=== PATIENT | female | born 1940 | race Caucasian/White ===

== ENCOUNTER 2016-08-01 23:35 | Inpatient (IN) | payer MEDICAID ==
[~2016-08-01] VITALS: Ht 160 cm; Wt 46.3 kg
[2016-08-01 23:31] VITALS: BP 189/103
[~2016-08-01 23:35] MED LIST: ACET-73 GT; ACET325T53 GT; ALBU2.5V13 HHN; BISA10SU8 RC; CHLO473M2 MM; CRAN3875 GT; DOCU50LI; ESOM20CA GT; HEPA500014 SQ; IPRA0.2S9 HHN; MAGN400O6 GT; NA P133E RC; SACC250C6 GT; SENN8.6T6 GT
[2016-08-01] MEDS ORDERED: PANTOPRAZOLE 40 MG VIAL ONE (23:40)
[2016-08-01] MEDS ORDERED: IV NS 0.9% 100 ML IV ONE (23:40)
[2016-08-01] MEDS ORDERED: IV SET PRIMARY PUMP SET 1 EA INFUS.SET MC ONE (23:40)
--- NOTE | 2016-08-01 23:40 | NUR ---
75 YP FEMALE BB RA FROM SNF. PT IS ALERT X 3, C/O COFFEE GROUND DISCHARGE FROM SNF. PT IS TRACHE, VENT DEPENDENT. PT IS GOWNED, PLACED ON BRASSIERE CUP MOLD CUTTER. SKIN WARM AND DRY, RR EVEN AND UNLABORED. AWAITING ORDERS FROM PROVIDER, WILL CONTINUE TO MONITOR
--- NOTE | 2016-08-01 23:45 | NUR ---
18G RIGHT FA IV STARTED. BLOOD SAMPLE OBTAINED AND SENT TO LAB
--- NOTE | 2016-08-01 23:52 | NUR ---
MEDICATED PT ORDERED
[2016-08-02] VITALS (7 sets, daily range): BP systolic 98–145; BP diastolic 41–95
[2016-08-02] MEDS ORDERED: MULT1TAB11 GT
[2016-08-02] MEDS ORDERED: METO5SOL2 GT
[2016-08-02] MEDS ORDERED: PANTOPRAZOLE 80 MG in IV NS 0.9% 100 ML IV ONE ×2
[2016-08-02] MEDS ORDERED: DOCU-25 GT
[2016-08-02] MEDS ORDERED: TRAM50TA2 GT
[2016-08-02] MEDS ORDERED: SIME80TA15 GT
[2016-08-02 00:20] LABS: BASOPHILS % (AUTO) 0.3 % (0.0-2.0); EOSINOPHILS # (AUTO) 0.7 /CMM (0.0-0.7); EOSINOPHILS % (AUTO) 4.4 % (0.0-6.0); HEMATOCRIT 41 % (33-45); HEMOGLOBIN 13.3 g/dL (11.5-14.8); LYMPHOCYTES # (AUTO) 3.6 /CMM (0.8-4.8); LYMPHOCYTES % (AUTO) 23.9 % (20.0-44.0); MEAN CORPUSCULAR HEMOGLOBIN 31 PG (26.0-33.0); MEAN CORPUSCULAR HGB CONC 33 g/dl (31.0-36.0); MEAN CORPUSCULAR VOLUME 94 fL (82-100); MONOCYTES # (AUTO) 1.5 /CMM (0.1-1.30); MONOCYTES % (AUTO) 9.8 % (2.0-12.0); NEUTROPHILS # (AUTO) 9.3 /CMM (1.8-8.9); NEUTROPHILS % (AUTO) 61.6 % (43.0-81.0); PLATELET COUNT (AUTO) 421 /CMM (150-450); RDW COEFFICIENT OF VARIATION 14.4 (11.5-15.0); WHITE BLOOD COUNT (AUTO) 15.1 K/uL (4.3-11.0)
[2016-08-02 00:32] LABS: CALCIUM, SERUM 8.8 mg/dL (8.5-10.1); CARBON DIOXIDE 26 mmol/L (21-32); CHLORIDE 105 mmol/L (98-107); CREATININE 0.3 mg/dL (0.6-1.3); GLUCOSE 122 mg/dL (74-106); POTASSIUM 3.3 mmol/L (3.5-5.1); SODIUM SERUM 139 mmol/L (136-145); UREA NITROGEN, BLOOD 17 mg/dL (7-18)
[2016-08-02 00:38] LABS: INR 0.92 (0.87-1.13); LACTIC ACID 1.4 mmol/L (0.4-2.0); PROTHROMBIN TIME 9.8 SECS (9.5-12.7)
[2016-08-02 00:42] LABS: TROPONIN I < 0.017 ng/mL (0.00-0.056)
[2016-08-02 00:46] LABS: ALANINE AMINOTRANSFERASE 23 U/L (12-78); ALBUMIN 3.6 g/dL (3.4-5.0); ALKALINE PHOSPHATASE 130 U/L (46-116); ASPARTATE AMINOTRANSFERASE 17 U/L (15-37); BILIRUBIN,DIRECT 0.1 mg/dL (0.0-0.2); BILIRUBIN,TOTAL 0.6 mg/dL (0.2-1.0); LIPASE 83 U/L (73-393); TOTAL PROTEIN, SERUM 7.8 g/dL (6.4-8.2)
--- NOTE | 2016-08-02 01:16 | NUR ---
PT TRANSPORTED TO TELE BED WITHOUT INCIDENT
[2016-08-02] MEDS ORDERED: ONDANSETRON HCL/PF 4 MG/2 ML VIAL IVP PRN (02:00)
[2016-08-02] MEDS ORDERED: ACETAMINOPHEN 325 MG TABLET MC PRN (02:00)
[2016-08-02] MEDS ORDERED: TRAMADOL HCL 50 MG TABLET GT PRN (02:00)
[2016-08-02] MEDS ORDERED: ACETAMINOPHEN 325 MG TABLET PO PRN (02:00)
[2016-08-02] MEDS ORDERED: MAGNESIUM HYDROXIDE 30 ML UDC GT PRN (02:00)
[2016-08-02] MEDS ORDERED: MISCELLANEOUS MED 1 EA EA GT PRN (02:00)
[2016-08-02] MEDS ORDERED: BISACODYL SUPP (10 MG) 10 MG/SUPP.RECT SUPP.RECT RC PRN (02:00)
[2016-08-02] MEDS ORDERED: NA PHOS,M-B/NA PHOS,DI-BA 1 EA ENEMA RC PRN (02:00)
[2016-08-02] MEDS ORDERED: POTASSIUM CL. PREMIX PERIPHER. 100 ML ONE (02:32)
[2016-08-02] MEDS ORDERED: IV SET PRIMARY PUMP SET 1 EA INFUS.SET MC ONE (02:49)
[2016-08-02] MEDS ORDERED: SECONDARY IV SET 1 EA INFUS.SET MC ONE ×3 (02:50→12:42)
[2016-08-02] MEDS ORDERED: IV NS 0.9% 250 ML IV ONE ×2 (02:51→12:42)
[2016-08-02] MEDS: POTASSIUM CL. PREMIX PERIPHER. 50 ML IV SCH ×2 (03:00→04:33)
--- NOTE | 2016-08-02 05:01 | NUR ---
PROGRAM DIRECTOR CABLE TELEVISION ADMITTING NOTES RECEIVED PATIENT VIA GURNEY FROM ER VIA ACLS PROTOCOL 0108 FAMILY AT BEDSIDE, PATIENT ON TRACH AND VENT, WITH MO AC RATE 14, TV 500, PEEP 5, FI02 30. PORTEX 7, HEAD TO TOE ASSESSMENT IS DONE, PATIENT STABLE, GT SITE CLEANED WITH NO S/S OF BLEEDING NOTED. PATIENT NPO. KEPT CLEAN DRY AND COMFORTABLE. NO S/S OF DISTRESS. SAFE HAZARD FREE ENVIRONMENT PROVIDED. WILL CONTINUE TO MONITOR PATIENT.
--- NOTE | 2016-08-02 06:26 | NUR ---
RD PROJECT MANAGER CLOSING NOTES PATIENT COMFORTABLY IN BED ASLEEP AND EASILY AWAKEN, ON TELE MONITOR. SR. [facility] WITH SAME SETTING OF VENT. ALERT AND NODS HEAD ABLE TO COMPREHEND SIMPLE INSTRUCTIONS. OFF LOAD AT ALL TIMES. RT CHECK ON HER ON REGULAR BASIS. DENIES PAIN OR DISTRESS,RESPIRATIONS EVEN UNLABORED BREATH SOUNDS. APICAL PULSE REGULAR; GOOD SKIN CARE PROVIDED. PATIENT IN STABLE CONDITION WITH NO SOB NO S/S OF DISTRESS NO NAUSEA AND VOMITING NO HEADACHE NO PAIN, SAFETY ENVIRONMENT PROVIDED. FREE OF CLUTTERS, NEEDS ATTENDED AND ANTICIPATED, NURSING CARE RENDERED, KEPT CLEAN AND DRY AND COMFORTABLE. ALL DUE MEDS WAS GIVEN. REPOSITIONED Q2H FOR COMFORT AND SKIN MGT. CALL LIGHT IN REACH, BED LOWERED AND LOCKED, SR X2 FOR SAFETY AND WILL ENDORSE CONTINUE PLAN OF CARE.
--- NOTE | 2016-08-02 07:05 | NUR ---
TELE/RN AM NOTES RECEIVED PATIENT IN BED, ASLEEP, RESPONSIVE TO VERBAL STIMULI, WITHOUT SOB, NO EVIDENCE OF PAIN. HOB ELEVATED 45 DEGREE, NO DISTRESS, ON MECH VENT SATURATING WELL 98%. TELE MONITOR ATTACHED, HR 74, SINUS RHYTHM. IV LINE RFA INTACT, PATENT. GT INTACT, PATENT, ABLE TO ASPIRATE YELLOW GASTRIC CONTENT, BOWEL SOUNDS ACTIVE ALL 4, NO S/SX NAUSEA, VOMITING.NO EVIDENCE OF BLEEDING. REMAINS NPO, GI CONSULT TO F/U WITH PATIENT. BED IN LOW POSITION, 2 SR UP FOR SAFETY, WITH CALL LIGHT WITHIN EASY REACH. WILL CONTINUE TO MONITOR ACCORDINGLY
[2016-08-02] MEDS: IPRATROPIUM NEB FS 0.5 MG/2.5 ML AMPUL.NEB HHN SCH ×3 (07:51→19:46)
[2016-08-02] MEDS: ALBUTEROL FS 2.5 MG/0.5 ML VIAL.NEB HHN SCH ×3 (07:51→19:46)
[2016-08-02 08:09] LABS: ALBUMIN 2.8 g/dL (3.4-5.0); BILIRUBIN,DIRECT 0.1 mg/dL (0.0-0.2); BILIRUBIN,TOTAL 0.6 mg/dL (0.2-1.0); MAGNESIUM 1.6 mg/dL (1.8-2.4); PHOSPHORUS 3.4 mg/dL (2.5-4.9); TOTAL PROTEIN, SERUM 6.3 g/dL (6.4-8.2)
[2016-08-02] MEDS: CHLORHEXIDINE GLUCONATE 15 ML UDC MM SCH (08:10)
[2016-08-02] MEDS: DOCUSATE SODIUM LIQ 100 MG/10 ML UDC GT SCH ×2 (08:10→23:41)
[2016-08-02] MEDS: METOCLOPRAMIDE HCL 10 MG/10 ML UDC GT SCH ×3 (08:10→16:32)
[2016-08-02] MEDS: SIMETHICONE 80 MG TAB.CHEW GT SCH ×3 (08:13→16:32)
[2016-08-02] MEDS: PANTOPRAZOLE 40 MG VIAL IV SCH ×2 (08:13→16:32)
[2016-08-02] MEDS: MULTIVITAMIN LIQ 5 ML UDC GT SCH (08:13)
[2016-08-02] MEDS: SENNOSIDES 8.6 MG TABLET GT SCH (08:13)
[2016-08-02] MEDS ORDERED: HEPARIN SODIUM, PORCINE 5000 UNITS/1 ML VIAL SQ SCH (09:00)
[2016-08-02] MEDS: Magnesium 1GM/D5W 100ML PREMIX 100 ML IV SCH ×2 (12:40→14:14)
--- NOTE | 2016-08-02 13:45 | NUR ---
TELE/RN NOTES G-TUBE REPOSITIONED, SECURED IN PLACE
--- NOTE | 2016-08-02 17:00 | NUR ---
TELE/RN NOTES GASTRIC CONTENT ASPIRATED, 10 CC, GREEN/YELLOW COLOR, MUCOUS LIKE CONSISTENCY, NO ODOR, LEAKING AROUND GASTRIC TUBE, NO ABDOMINAL DISTENTION, BOWEL SOUNDS PRESENT, NO FACIAL GRIMACING. INFORMED DOCTOR TONIA VIA PHONE. WILL VISIT TO EXAMINE PATIENT
[2016-08-02] MEDS ORDERED: DIATR MEGLU/DIATRIZOATE SODIUM 30 ML BOTTLE (GASTROGRAPHIN) ONE (19:18)
--- NOTE | 2016-08-02 19:45 | NUR ---
RN OPENING NOTES RECEIVED REPORT FROM ALBERTO RN, ALEJANDRA. Pt FOUND AWAKE, RESTING IN BED. DAUGHTER VISITING AT BEDSIDE. NO S/S OF ACUTE DISTRESS OR SOB NOTED. C/O SLIGHT PAIN BUT DID NOT WANT ANY PAIN MEDS AT THIS TIME. Pt IS A/OX1, HUNGARIAN SPEAKING. VENT SETTINGS: FIO2 30, PEEP 5, TV 500, PORTEX #7, RATE 14. IV ACCESS ON LFA #20G. SAFETY MEASURES IN PLACE. BED LOW, LOCKED, HOB ELEVATED, SIDE RAILS UP, & CALL LIGHT WITHIN REACH. WILL CONTINUE TO MONITOR Pt THROUGHOUT THE NIGHT FOR SAFETY.
--- NOTE | 2016-08-02 19:54 | NUR ---
TELE/RN CLOSING NOTES PATIENT IS IN THE BED, HOB ELEVATED, NO DISTRESS, AWAKE, ON MECHANICAL VENT WITH O2 SAT 99%. TELE MONITOR ATTACHED, WITH HR 72, SINUS RHYTHM. IV LINE ON LFA INTACT, PATENT. DENIES PAIN OR DISTRESS, DAUGHTER AT THE BEDSIDE. TURNED/REPOSITIONED PATIENT EVERY 2H, AND NEEDED. G-T INTACT, DRESSING CHANGED. CONTINUES NPO. KEPT CLEAN DRY, COMFORTABLE. NEEDS MET IN TIMELY MANNER, WITH CALL LIGHT WITHIN EASY REACH ALL THE TIME. ENDORSED TO THE SPORTING GOODS SALES ASSOCIATE NURSE FOR ISRAEL.
[2016-08-02] MEDS ORDERED: diphenhydrAMINE HCL 50 MG/ML VIAL ONE (23:22)
[2016-08-02] MEDS ORDERED: diphenhydrAMINE HCL 50 MG/ML VIAL IV PRN (23:30)
[2016-08-03] VITALS: BP 99/56
[2016-08-03] MEDS: IPRATROPIUM NEB FS 0.5 MG/2.5 ML AMPUL.NEB HHN SCH ×3 (01:31→12:37)
[2016-08-03] MEDS: ALBUTEROL FS 2.5 MG/0.5 ML VIAL.NEB HHN SCH ×3 (01:31→12:37)
[2016-08-03 04:00] VITALS: BP 104/70
--- NOTE | 2016-08-03 06:50 | NUR ---
RN CLOSING NOTES NO SIGNIFICANT CHANGES. ALL NEEDS MET AND ATTENDED TO. SAFETY MEASURES IN PLACE. NO S/S OF ACUTE DISTRESS OR SOB DURING THE NIGHT. WILL ENDORSE TO DAYSHIFT RN FOR Pt's ISRAEL AND SAFETY.
--- NOTE | 2016-08-03 07:50 | NUR ---
ART EDUCATION PROFESSOR OPENING NOTE PATIENT IS ALERT AND ORIENTED X1-2. FRENCH SPEAKING, ABLE TO MOUTH WORDS. NO PAIN AT THIS TIME. NO SOB OR DISTRESS NOTED. CALL LIGHT WITHIN REACH. SAFETY MEASURES IMPLEMENTED. ON VENT. IV INTACT AND PATENT NO REDNESS OR SWELLING NOTED. WILL CONTINUE TO MONITOR
[2016-08-03 08:00] VITALS: BP 87/51
[2016-08-03 08:07] LABS: BASOPHILS % (AUTO) 0.6 % (0.0-2.0); EOSINOPHILS # (AUTO) 0.5 /CMM (0.0-0.7); EOSINOPHILS % (AUTO) 7.7 % (0.0-6.0); HEMATOCRIT 36 % (33-45); LYMPHOCYTES # (AUTO) 1.5 /CMM (0.8-4.8); LYMPHOCYTES % (AUTO) 25.3 % (20.0-44.0); MEAN CORPUSCULAR HEMOGLOBIN 32 PG (26.0-33.0); MEAN CORPUSCULAR HGB CONC 34 g/dl (31.0-36.0); MEAN CORPUSCULAR VOLUME 94 fL (82-100); MONOCYTES # (AUTO) 0.6 /CMM (0.1-1.30); MONOCYTES % (AUTO) 9.9 % (2.0-12.0); NEUTROPHILS # (AUTO) 3.4 /CMM (1.8-8.9); NEUTROPHILS % (AUTO) 56.5 % (43.0-81.0); PLATELET COUNT (AUTO) 364 /CMM (150-450); RDW COEFFICIENT OF VARIATION 14.4 (11.5-15.0); RED BLOOD CELL COUNT(AUTO) 3.79 MIL/uL (4.0-5.2)
[2016-08-03 08:23] LABS: CREATININE 0.2 mg/dL (0.6-1.3); POTASSIUM 4.1 mmol/L (3.5-5.1)
--- NOTE | 2016-08-03 08:35 | NUR ---
WOUND CARE CONSULT: PATIENT SEEN AND SKIN ASSESSMENT DONE. TRACH VENT DEPENDENT, IMMOBILE, INCONTINENT, BRIANNA 13, NURSING STAFF ORDERED ENRICO ISOFLEX YOSELIN BED AND WILL BE PLACED WHEN AVAILABLE IN THE UNIT. SEE TODAY'S SKIN ASSESSMENT IN PCS ALONG WITH RECOMMENDATIONS. RECOMMEND MOISTURE PROTECTION WITH Z GUARD ORDERED, TURN AND REPOSITION EVERY 2 HRS PATIENT CONDITION PERMITS, OFFLOAD BOTH HEELS. ALL DISCUSSED WITH NURSING STAFF. MD IN AGREEMENT WITH PLAN OF CARE. Addendum: 08/03/16 at 0837 by SHANTE DEJESUS WNDNU Amended: Links added.
[2016-08-03] MEDS: MULTIVITAMIN LIQ 5 ML UDC GT SCH (08:49)
[2016-08-03] MEDS: CHLORHEXIDINE GLUCONATE 15 ML UDC MM SCH (08:49)
[2016-08-03] MEDS: SIMETHICONE 80 MG TAB.CHEW GT SCH ×2 (08:49→13:00)
[2016-08-03] MEDS: PANTOPRAZOLE 40 MG VIAL IV SCH (08:49)
[2016-08-03] MEDS: SENNOSIDES 8.6 MG TABLET GT SCH (08:49)
[2016-08-03] MEDS: DOCUSATE SODIUM LIQ 100 MG/10 ML UDC GT SCH (08:49)
[2016-08-03] MEDS: METOCLOPRAMIDE HCL 10 MG/10 ML UDC GT SCH ×2 (08:49→13:00)
[2016-08-03] MEDS ORDERED: Z GUARD REMEDY 2 OZ OINT TP PRN (09:00)
[2016-08-03] MEDS ORDERED: Z GUARD REMEDY 2 OZ OINT TP SCH (09:00)
--- NOTE | 2016-08-03 12:30 | NUR ---
RN NOTE GAVE REPORT TO PRITI BRADFORD AT [facility] FOR REPORT. DISCHARGE INSTRUCTIONS GIVEN TO RN CRUISE AGENT. ALL BELONGINGS ACCOUNTED FOR. CALLED GIFTY TENA TO MAKE AWARE OF DISCHARGE.
--- NOTE | 2016-08-03 15:22 | NUR ---
REELING MACHINE OPERATOR NOTE PATIENT IS ALERT AND ORIENTED x1-2. NO PAIN AT THIS TIME. NO SOB OR DISTRESS NOTED. CALL LIGHT WITHIN REACH AT ALL TIMES. SAFETY MEASURES IMPLEMENTED. IV REMOVED, SKIN INTACT. DISCHARGE INSTRUCTIONS GIVEN TO RN WEED CONTROL INSPECTOR AT [facility] WEED CONTROL INSPECTOR. ALL BELONGINGS ACCOUNTED FOR. MADE SONMALLIKA AWARE OF DISCHARGE. LEFT VIA AMBULANCE BY TWO CRYPTOGRAPHIC CENTER SPECIALIST. PATIENT IS STABLE
== END 2016-08-03 15:22 | DRG 252 ==
LOC: ER 23:37 → TELE 08-02 00:45
PROVIDERS: ADMIT Nurse Practitioner Acute Care; ATTEND Nurse Practitioner Acute Care
PROC: 5A1935Z Respiratory Ventilation, Less than 24 Consecutive Hours (ICD-10-PCS; principal; 2016-08-02)
DX: K94.23 Gastrostomy malfunction (principal); E43 Unspecified severe protein-calorie malnutrition; Z99.11 Dependence on respirator [ventilator] status; G61.0 Guillain-Barre syndrome; J96.10 Chronic respiratory failure, unspecified whether with hypoxia or hypercapnia; Z93.0 Tracheostomy status; D68.59 Other primary thrombophilia; E11.9 Type 2 diabetes mellitus without complications; R13.10 Dysphagia, unspecified; K21.9 Gastro-esophageal reflux disease without esophagitis; Z74.01 Bed confinement status; D72.829 Elevated white blood cell count, unspecified; E87.6 Hypokalemia; Z68.1 Body mass index [BMI] 19.9 or less, adult
CPT/HCPCS: 31720; 36415; 71010-TC; 74000-TC; 80048-TC; 80061-TC; 80076-TC; 83605-TC; 83690-TC; 83735-TC; 84100-TC; 84484-TC; 85025-TC; 85730-TC; 86850-TC; 87040-TC; 87081-TC; 94002-TC; 94003-TC; 94640-TC; 99082-TC; A4606; A6402; A6403; C9113; J1200; J2405; J3475; J3480; J7030; J7050; J8597; Q9963; Z7610

== ENCOUNTER 2016-08-19 10:03 | Inpatient (IN) | payer MEDICAID ==
[~2016-08-19] VITALS: Ht 149.9 cm; Wt 47.6 kg
[~2016-08-19 10:03] MED LIST changes: +DOCU-25 GT; +METO5SOL2 GT; +MULT1TAB11 GT; +SIME80TA15 GT; +TRAM50TA2 GT
[2016-08-19 10:26] LABS: BASOPHILS # (AUTO) 0.1 /CMM (0.0-0.2); BASOPHILS % (AUTO) 0.5 % (0.0-2.0); EOSINOPHILS # (AUTO) 0.5 /CMM (0.0-0.7); EOSINOPHILS % (AUTO) 4.8 % (0.0-6.0); HEMATOCRIT 39 % (33-45); LYMPHOCYTES # (AUTO) 1.2 /CMM (0.8-4.8); LYMPHOCYTES % (AUTO) 11.1 % (20.0-44.0); MEAN CORPUSCULAR HEMOGLOBIN 31 PG (26.0-33.0); MEAN CORPUSCULAR HGB CONC 33 g/dl (31.0-36.0); MEAN CORPUSCULAR VOLUME 95 fL (82-100); MONOCYTES # (AUTO) 0.8 /CMM (0.1-1.30); NEUTROPHILS # (AUTO) 8.5 /CMM (1.8-8.9); NEUTROPHILS % (AUTO) 76.6 % (43.0-81.0); PLATELET COUNT (AUTO) 408 /CMM (150-450); RDW COEFFICIENT OF VARIATION 13.5 (11.5-15.0); RED BLOOD CELL COUNT(AUTO) 4.14 MIL/uL (4.0-5.2); WHITE BLOOD COUNT (AUTO) 11.1 K/uL (4.3-11.0)
[2016-08-19] MEDS ORDERED: CEFTRIAXONE 1GM BAG (ER ONLY) 50 ML IV ONE ×2 (10:30)
[2016-08-19] MEDS ORDERED: LEVOFLOXACIN 750 MG /D5W 150ML 150 ML IV ONE ×2 (10:30)
[2016-08-19] MEDS ORDERED: VANCOMYCIN 1 GM in IV D5W 250 ML IV ONE ×2 (10:30→14:30)
[2016-08-19] MEDS ORDERED: IV NS 0.9% 1,000 ML BAG IV ONE ×2 (10:30→14:30)
[2016-08-19] MEDS ORDERED: IV NS 0.9% 1,000 ML ONE (10:30)
[2016-08-19] MEDS ORDERED: IV SET PRIMARY PUMP SET 1 EA INFUS.SET MC ONE ×2 (10:30→15:19)
[2016-08-19 10:37] LABS: CALCIUM, SERUM 8.9 mg/dL (8.5-10.1); CARBON DIOXIDE 26 mmol/L (21-32); CHLORIDE 101 mmol/L (98-107); CREATININE 0.4 mg/dL (0.6-1.3); GLUCOSE 183 mg/dL (74-106); POTASSIUM 4.7 mmol/L (3.5-5.1); SODIUM SERUM 136 mmol/L (136-145); UREA NITROGEN, BLOOD 27 mg/dL (7-18)
[2016-08-19 10:40] LABS: INR 0.9 (0.87-1.13); PROTHROMBIN TIME 9.3 SECS (9.5-12.7)
[2016-08-19 10:42] LABS: ALANINE AMINOTRANSFERASE 30 U/L (12-78); ALBUMIN 3.5 g/dL (3.4-5.0); ALKALINE PHOSPHATASE 139 U/L (46-116); ASPARTATE AMINOTRANSFERASE 28 U/L (15-37); BILIRUBIN,DIRECT 0.1 mg/dL (0.0-0.2); BILIRUBIN,TOTAL 0.4 mg/dL (0.2-1.0); TOTAL PROTEIN, SERUM 7.7 g/dL (6.4-8.2)
[2016-08-19 10:44] LABS: TROPONIN I < 0.017 ng/mL (0.00-0.056)
[2016-08-19 10:51] VITALS: BP 109/67
[2016-08-19 10:54] LABS: LACTIC ACID 2.3 mmol/L (0.4-2.0)
[2016-08-19 13:48] LABS: ABG BASE EXCESS -0.3 mmol/L; ABG OXYGEN SATURATION 99.4 % (92.0-98.5); ABG PH 7.418 (7.350-7.450); ABG PO2 483.5 mmHg (75.0-100.0); ABG TOTAL HEMOGLOBIN 12.3 G/dL (12.0-16.0); AaDO2 191.5 mmHg; COHb 0.6 % (0.5-1.5); MetHb 0.5 % (0.0-1.5); O2Hb 98.3 % (94.0-97.0); PEEP,BG 5 cm H2O; SITE, ABG Right Radial; VT, ABG 500 mL
[2016-08-19] MEDS ORDERED: MAGNESIUM HYDROXIDE 30 ML UDC GT PRN (14:00)
[2016-08-19] MEDS ORDERED: BISACODYL SUPP (10 MG) 10 MG/SUPP.RECT SUPP.RECT RC PRN (14:00)
[2016-08-19] MEDS ORDERED: NA PHOS,M-B/NA PHOS,DI-BA 1 EA ENEMA RC PRN (14:00)
[2016-08-19] MEDS ORDERED: TRAMADOL HCL 50 MG TABLET GT PRN (14:00)
[2016-08-19] MEDS ORDERED: ACETAMINOPHEN 325 MG TABLET PO PRN (14:30)
[2016-08-19] MEDS ORDERED: HEPARIN SODIUM, PORCINE 5000 UNITS/1 ML VIAL IVF PRN (14:30)
[2016-08-19] MEDS ORDERED: MORPHINE SULFATE INJ 2 MG/ML DISP.SYRIN IV PRN (14:30)
[2016-08-19] MEDS ORDERED: LORAZEPAM INJ 2 MG/ML VIAL IV PRN (14:30)
[2016-08-19] MEDS ORDERED: IV 1/2NS 1000 ML 1,000 ML IV ONE (15:19)
[2016-08-19] MEDS ORDERED: FEE PK DOSING 1 MIN EA MC ONE (15:25)
[2016-08-19] MEDS ORDERED: ACETAMINOPHEN ES 500 MG TABLET GT PRN (15:30)
[2016-08-19] MEDS: IV NS 0.9% 1,000 ML IV PRN (15:31)
[2016-08-19] MEDS ORDERED: VANCOMYCIN 1 GM in IV D5W 250 ML IV SCH (16:00)
[2016-08-19] MEDS: METOCLOPRAMIDE HCL 10 MG/10 ML UDC GT SCH (16:24)
[2016-08-19] MEDS: SIMETHICONE 80 MG TAB.CHEW GT SCH (16:24)
[2016-08-19] MEDS: methylPREDNISolone SOD SUCC 125 MG/2ML VIAL IV SCH (16:24)
[2016-08-19] MEDS: PIPERACILLIN /TAZOBACTAM 3.375 G in IV D5W 50 ML IV SCH ×2 (16:27→21:23)
[2016-08-19] MEDS: LACTOBACILLUS RHAMNOSUS GG 1 EACH CAP.SPRINK GT SCH (16:27)
[2016-08-19] MEDS ORDERED: SECONDARY IV SET 1 EA INFUS.SET MC ONE (16:29)
[2016-08-19] MEDS ORDERED: Medication Not On Formulary EA (Cran/Vitc/Mannose/Inulin/Brom (Uti-Stat Liquid) 30 ML) GT SCH (17:00)
[2016-08-19 17:13] LABS: BILIRUBIN,URINE NEGATIVE (NEGATIVE); BLOOD, URINE NEGATIVE Ery/uL (NEGATIVE); COLOR,URINE YELLOW (YELLOW); KETONES,URINE NEGATIVE (NEGATIVE); LEUKOCYTE ESTERASE ,URINE NEGATIVE (NEGATIVE); NITRITE, URINE POSITIVE (NEGATIVE); PH,URINE 7.5 (5.0-8.0); PROTEIN,URINE NEGATIVE (NEGATIVE); UGLUCOSE NEGATIVE (NEGATIVE); UROBILINOGEN,URINE 0.2 EU/dL (0.2)
[2016-08-19 17:17] LABS: APPEARANCE,URINE SLIGHTLY HAZY (CLEAR)
[2016-08-19 17:31] LABS: ADD URINE CULTURE YES; BACTERIA,URINE Many /HPF (None Seen); RBC,URINE 0-2 /HPF (0-2)
[2016-08-19 17:32] LABS: SQUAMOUS EPITHELIAL CELL,UR Few /HPF (None Seen)
[2016-08-19] MEDS: VANCOMYCIN 1 GM in IV D5W 250 ML IV SCH (18:36)
[2016-08-19 20:00] VITALS: BP 108/60
[2016-08-19] MEDS: IPRATROPIUM NEB FS 0.5 MG/2.5 ML AMPUL.NEB HHN SCH (20:00)
[2016-08-19] MEDS: ALBUTEROL FS 2.5 MG/0.5 ML VIAL.NEB HHN SCH (20:00)
[2016-08-19 20:10] VITALS: BP 108/60
[2016-08-19] MEDS: DOCUSATE SODIUM LIQ 100 MG/10 ML UDC GT SCH (21:23)
[2016-08-20] VITALS: BP 112/50
[2016-08-20] MEDS: ALBUTEROL FS 2.5 MG/0.5 ML VIAL.NEB HHN SCH ×4 (01:45→19:57)
[2016-08-20] MEDS: IPRATROPIUM NEB FS 0.5 MG/2.5 ML AMPUL.NEB HHN SCH ×4 (01:45→19:57)
[2016-08-20] MEDS: VANCOMYCIN 1 GM in IV D5W 250 ML IV SCH ×2 (03:46→11:05)
[2016-08-20] MEDS: IV NS 0.9% 1,000 ML IV PRN ×2 (03:47→18:41)
[2016-08-20] MEDS: LACTOBACILLUS RHAMNOSUS GG 1 EACH CAP.SPRINK GT SCH ×2 (03:47→16:53)
[2016-08-20 04:00] VITALS: BP 117/57
[2016-08-20] MEDS: PIPERACILLIN /TAZOBACTAM 3.375 G in IV D5W 50 ML IV SCH ×4 (04:50→21:27)
[2016-08-20 06:56] LABS: BASOPHILS % (AUTO) 0.1 % (0.0-2.0); HEMATOCRIT 34 % (33-45); HEMOGLOBIN 11.6 g/dL (11.5-14.8); LYMPHOCYTES # (AUTO) 0.8 /CMM (0.8-4.8); LYMPHOCYTES % (AUTO) 8.3 % (20.0-44.0); MEAN CORPUSCULAR HEMOGLOBIN 32 PG (26.0-33.0); MEAN CORPUSCULAR HGB CONC 34 g/dl (31.0-36.0); MEAN CORPUSCULAR VOLUME 94 fL (82-100); MONOCYTES # (AUTO) 0.1 /CMM (0.1-1.30); MONOCYTES % (AUTO) 1.5 % (2.0-12.0); NEUTROPHILS # (AUTO) 8.6 /CMM (1.8-8.9); NEUTROPHILS % (AUTO) 90.1 % (43.0-81.0); PLATELET COUNT (AUTO) 332 /CMM (150-450); RDW COEFFICIENT OF VARIATION 13.7 (11.5-15.0); RED BLOOD CELL COUNT(AUTO) 3.62 MIL/uL (4.0-5.2); WHITE BLOOD COUNT (AUTO) 9.5 K/uL (4.3-11.0)
[2016-08-20 07:05] LABS: INR 0.9 (0.87-1.13); PROTHROMBIN TIME 9.6 SECS (9.5-12.7)
[2016-08-20 07:06] LABS: BILIRUBIN,TOTAL 0.7 mg/dL (0.2-1.0); CALCIUM, SERUM 8.4 mg/dL (8.5-10.1); CREATININE 0.6 mg/dL (0.6-1.3); POTASSIUM 3.5 mmol/L (3.5-5.1); TOTAL PROTEIN, SERUM 7.1 g/dL (6.4-8.2)
[2016-08-20 08:00] VITALS: BP 129/65
[2016-08-20] MEDS: SIMETHICONE 80 MG TAB.CHEW GT SCH ×3 (08:57→16:54)
[2016-08-20] MEDS: methylPREDNISolone SOD SUCC 125 MG/2ML VIAL IV SCH ×3 (08:57→16:54)
[2016-08-20] MEDS: MULTIVIT, IRON, MIN NO. 8, FA 1 TAB TABLET GT SCH (08:57)
[2016-08-20] MEDS: SENNOSIDES 8.6 MG TABLET GT SCH (08:57)
[2016-08-20] MEDS: PANTOPRAZOLE 40 MG VIAL IV SCH (08:57)
[2016-08-20] MEDS: CHLORHEXIDINE GLUCONATE 15 ML UDC MM SCH (08:58)
[2016-08-20] MEDS: METOCLOPRAMIDE HCL 10 MG/10 ML UDC GT SCH ×3 (08:58→16:54)
[2016-08-20] MEDS: DOCUSATE SODIUM LIQ 100 MG/10 ML UDC GT SCH ×2 (09:00→21:27)
[2016-08-20 12:00] VITALS: BP 117/81
[2016-08-20 16:00] VITALS: BP 107/49
[2016-08-20] MEDS: HEPARIN SODIUM, PORCINE 5000 UNITS/1 ML VIAL SQ SCH (17:01)
[2016-08-20 20:00] VITALS: BP 109/45
[2016-08-20] MEDS: GLYTROL 1,000 ML BAG GT PRN (21:27)
[2016-08-21] VITALS: BP 133/62
[2016-08-21] MEDS: IPRATROPIUM NEB FS 0.5 MG/2.5 ML AMPUL.NEB HHN SCH ×4 (01:18→19:42)
[2016-08-21] MEDS: ALBUTEROL FS 2.5 MG/0.5 ML VIAL.NEB HHN SCH ×4 (01:18→19:42)
[2016-08-21] MEDS: PIPERACILLIN /TAZOBACTAM 3.375 G in IV D5W 50 ML IV SCH ×2 (03:33→09:13)
[2016-08-21] MEDS: LACTOBACILLUS RHAMNOSUS GG 1 EACH CAP.SPRINK GT SCH ×2 (03:33→15:59)
[2016-08-21 04:00] VITALS: BP 125/86
[2016-08-21] MEDS: BLOOD SUGAR DIAGNOSTIC 1 EACH STRIP IN SCH ×3 (05:30→17:37)
[2016-08-21] MEDS: IV NS 0.9% 1,000 ML IV PRN ×2 (05:31→18:52)
[2016-08-21] MEDS: INSULIN REGULAR, HUMAN 100 UNIT/ML 3 ML VIAL SQ PRN ×3 (05:32→17:43)
[2016-08-21] MEDS ORDERED: DEXTROSE 50%-WATER 50 ML DISP.SYRIN IV PRN (06:00)
[2016-08-21 06:58] LABS: BASOPHILS % (AUTO) 0.1 % (0.0-2.0); HEMATOCRIT 32 % (33-45); LYMPHOCYTES # (AUTO) 0.7 /CMM (0.8-4.8); LYMPHOCYTES % (AUTO) 8.9 % (20.0-44.0); MEAN CORPUSCULAR HEMOGLOBIN 32 PG (26.0-33.0); MEAN CORPUSCULAR HGB CONC 34 g/dl (31.0-36.0); MEAN CORPUSCULAR VOLUME 93 fL (82-100); MONOCYTES # (AUTO) 1.2 /CMM (0.1-1.30); MONOCYTES % (AUTO) 14.3 % (2.0-12.0); NEUTROPHILS # (AUTO) 6.3 /CMM (1.8-8.9); NEUTROPHILS % (AUTO) 76.7 % (43.0-81.0); PLATELET COUNT (AUTO) 343 /CMM (150-450); RDW COEFFICIENT OF VARIATION 13.9 (11.5-15.0); RED BLOOD CELL COUNT(AUTO) 3.43 MIL/uL (4.0-5.2); WHITE BLOOD COUNT (AUTO) 8.2 K/uL (4.3-11.0)
[2016-08-21 07:31] LABS: CALCIUM, SERUM 8.4 mg/dL (8.5-10.1); CREATININE 0.4 mg/dL (0.6-1.3); MAGNESIUM 2.2 mg/dL (1.8-2.4); PHOSPHORUS 4.3 mg/dL (2.5-4.9)
[2016-08-21 07:37] LABS: POTASSIUM 2.6 mmol/L (3.5-5.1)
[2016-08-21 08:00] VITALS: BP 129/61
[2016-08-21] MEDS: SIMETHICONE 80 MG TAB.CHEW GT SCH ×3 (08:00→16:02)
[2016-08-21] MEDS: methylPREDNISolone SOD SUCC 125 MG/2ML VIAL IV SCH ×3 (08:00→16:02)
[2016-08-21] MEDS: PANTOPRAZOLE 40 MG VIAL IV SCH (08:00)
[2016-08-21] MEDS: SENNOSIDES 8.6 MG TABLET GT SCH (08:00)
[2016-08-21] MEDS: MULTIVIT, IRON, MIN NO. 8, FA 1 TAB TABLET GT SCH (08:00)
[2016-08-21] MEDS: CHLORHEXIDINE GLUCONATE 15 ML UDC MM SCH (08:01)
[2016-08-21] MEDS: METOCLOPRAMIDE HCL 10 MG/10 ML UDC GT SCH ×3 (08:01→16:02)
[2016-08-21] MEDS: DOCUSATE SODIUM LIQ 100 MG/10 ML UDC GT SCH ×2 (08:02→20:44)
[2016-08-21] MEDS: HEPARIN SODIUM, PORCINE 5000 UNITS/1 ML VIAL SQ SCH ×2 (08:16→20:43)
[2016-08-21] MEDS ORDERED: POTASSIUM CHLORIDE 20 MEQ TAB.PRT.SR PO ONE (10:30)
[2016-08-21 12:00] VITALS: BP 114/60
[2016-08-21] MEDS: GLYTROL 1,000 ML BAG GT PRN (12:11)
[2016-08-21] MEDS: VANCOMYCIN 500 MG in IV D5W 100 ML IV SCH (12:17)
[2016-08-21] MEDS ORDERED: SECONDARY IV SET 1 EA INFUS.SET MC ONE (13:34)
[2016-08-21] MEDS: POTASSIUM CL. PREMIX PERIPHER. 50 ML IV SCH ×4 (13:39→21:57)
[2016-08-21 16:00] VITALS: BP 118/55
[2016-08-21] MEDS ORDERED: IV NS 0.9% 250 ML IV ONE (19:44)
[2016-08-21] MEDS ORDERED: IV SET PRIMARY PUMP SET 1 EA INFUS.SET MC ONE (19:44)
[2016-08-21 20:00] VITALS: BP 143/71
[2016-08-21] MEDS ORDERED: POTASSIUM CL. PREMIX PERIPHER. 50 ML ONE (21:28)
[2016-08-22] VITALS (7 sets, daily range): BP systolic 55–128; BP diastolic 56–88
[2016-08-22] MEDS ORDERED: SECONDARY IV SET 1 EA INFUS.SET MC ONE (00:18)
[2016-08-22] MEDS: BLOOD SUGAR DIAGNOSTIC 1 EACH STRIP IN SCH ×4 (00:21→17:17)
[2016-08-22] MEDS: VANCOMYCIN 500 MG in IV D5W 100 ML IV SCH ×2 (00:22→12:14)
[2016-08-22] MEDS: INSULIN REGULAR, HUMAN 100 UNIT/ML 3 ML VIAL SQ PRN ×3 (00:23→17:18)
[2016-08-22] MEDS: IPRATROPIUM NEB FS 0.5 MG/2.5 ML AMPUL.NEB HHN SCH ×4 (01:56→20:12)
[2016-08-22] MEDS: ALBUTEROL FS 2.5 MG/0.5 ML VIAL.NEB HHN SCH ×4 (01:56→20:12)
[2016-08-22] MEDS: LACTOBACILLUS RHAMNOSUS GG 1 EACH CAP.SPRINK GT SCH ×2 (03:58→16:37)
[2016-08-22] MEDS: IV NS 0.9% 1,000 ML IV PRN ×2 (05:18→16:44)
[2016-08-22 06:46] LABS: BASOPHILS % (AUTO) 0.2 % (0.0-2.0); HEMATOCRIT 29 % (33-45); HEMOGLOBIN 9.7 g/dL (11.5-14.8); LYMPHOCYTES # (AUTO) 1.1 /CMM (0.8-4.8); LYMPHOCYTES % (AUTO) 12.8 % (20.0-44.0); MEAN CORPUSCULAR HEMOGLOBIN 32 PG (26.0-33.0); MEAN CORPUSCULAR HGB CONC 33 g/dl (31.0-36.0); MEAN CORPUSCULAR VOLUME 96 fL (82-100); MONOCYTES # (AUTO) 0.9 /CMM (0.1-1.30); MONOCYTES % (AUTO) 10.5 % (2.0-12.0); NEUTROPHILS # (AUTO) 6.4 /CMM (1.8-8.9); NEUTROPHILS % (AUTO) 76.5 % (43.0-81.0); PLATELET COUNT (AUTO) 264 /CMM (150-450); RDW COEFFICIENT OF VARIATION 14.2 (11.5-15.0); RED BLOOD CELL COUNT(AUTO) 3.04 MIL/uL (4.0-5.2); WHITE BLOOD COUNT (AUTO) 8.3 K/uL (4.3-11.0)
[2016-08-22 07:08] LABS: CALCIUM, SERUM 8.3 mg/dL (8.5-10.1); CREATININE 0.2 mg/dL (0.6-1.3); PHOSPHORUS 2.7 mg/dL (2.5-4.9); POTASSIUM 4.2 mmol/L (3.5-5.1)
[2016-08-22] MEDS: methylPREDNISolone SOD SUCC 125 MG/2ML VIAL IV SCH ×3 (08:56→16:37)
[2016-08-22] MEDS: PANTOPRAZOLE 40 MG VIAL IV SCH (08:56)
[2016-08-22] MEDS: HEPARIN SODIUM, PORCINE 5000 UNITS/1 ML VIAL SQ SCH ×2 (08:57→21:27)
[2016-08-22] MEDS: DOCUSATE SODIUM LIQ 100 MG/10 ML UDC GT SCH ×2 (08:57→21:26)
[2016-08-22] MEDS: SENNOSIDES 8.6 MG TABLET GT SCH (08:57)
[2016-08-22] MEDS: SIMETHICONE 80 MG TAB.CHEW GT SCH ×2 (08:57→12:11)
[2016-08-22] MEDS: CHLORHEXIDINE GLUCONATE 15 ML UDC MM SCH (08:57)
[2016-08-22] MEDS: METOCLOPRAMIDE HCL 10 MG/10 ML UDC GT SCH ×3 (08:57→16:37)
[2016-08-22] MEDS: MULTIVIT, IRON, MIN NO. 8, FA 1 TAB TABLET GT SCH (08:57)
[2016-08-22] MEDS: GLYTROL 1,000 ML BAG GT PRN (11:55)
[2016-08-22] MEDS ORDERED: SIMETHICONE 80 MG TAB.CHEW PO SCH (13:00)
[2016-08-23] VITALS: BP_SYST 140; BP_SYST 148; BP_DIAS 57; BP_DIAS 63
[2016-08-23] MEDS: VANCOMYCIN 500 MG in IV D5W 100 ML IV SCH ×2 (00:29→15:00)
[2016-08-23] MEDS: BLOOD SUGAR DIAGNOSTIC 1 EACH STRIP IN SCH ×4 (00:33→17:22)
[2016-08-23] MEDS: INSULIN REGULAR, HUMAN 100 UNIT/ML 3 ML VIAL SQ PRN ×2 (00:36→18:44)
[2016-08-23] MEDS: ALBUTEROL FS 2.5 MG/0.5 ML VIAL.NEB HHN SCH ×4 (02:05→19:52)
[2016-08-23] MEDS: IPRATROPIUM NEB FS 0.5 MG/2.5 ML AMPUL.NEB HHN SCH ×4 (02:05→19:52)
[2016-08-23] MEDS: LACTOBACILLUS RHAMNOSUS GG 1 EACH CAP.SPRINK GT SCH ×2 (03:34→15:46)
[2016-08-23 04:00] VITALS: BP 121/57
[2016-08-23] MEDS: IV NS 0.9% 1,000 ML IV PRN (06:06)
[2016-08-23 07:18] LABS: CALCIUM, SERUM 8.3 mg/dL (8.5-10.1); CREATININE 0.3 mg/dL (0.6-1.3); POTASSIUM 3.3 mmol/L (3.5-5.1)
[2016-08-23 08:00] VITALS: BP 119/62
[2016-08-23] MEDS: METOCLOPRAMIDE HCL 10 MG/10 ML UDC GT SCH ×3 (08:49→17:22)
[2016-08-23] MEDS: PANTOPRAZOLE 40 MG VIAL IV SCH (08:49)
[2016-08-23] MEDS: CHLORHEXIDINE GLUCONATE 15 ML UDC MM SCH (08:49)
[2016-08-23] MEDS: MULTIVIT, IRON, MIN NO. 8, FA 1 TAB TABLET GT SCH (08:50)
[2016-08-23] MEDS: HEPARIN SODIUM, PORCINE 5000 UNITS/1 ML VIAL SQ SCH ×2 (08:50→21:44)
[2016-08-23] MEDS: SENNOSIDES 8.6 MG TABLET GT SCH (08:50)
[2016-08-23] MEDS: methylPREDNISolone SOD SUCC 125 MG/2ML VIAL IV SCH ×3 (08:53→17:22)
[2016-08-23] MEDS: DOCUSATE SODIUM LIQ 100 MG/10 ML UDC GT SCH ×2 (09:00→21:42)
[2016-08-23] MEDS ORDERED: POTASSIUM CHLORIDE 20 MEQ POWDER PACKET GT SCH (11:30)
[2016-08-23 12:00] VITALS: BP 123/70
[2016-08-23 14:24] LABS: BASOPHILS % (AUTO) 0.1 % (0.0-2.0); HEMATOCRIT 33 % (33-45); HEMOGLOBIN 10.7 g/dL (11.5-14.8); LYMPHOCYTES # (AUTO) 0.9 /CMM (0.8-4.8); LYMPHOCYTES % (AUTO) 9.1 % (20.0-44.0); MEAN CORPUSCULAR HEMOGLOBIN 31 PG (26.0-33.0); MEAN CORPUSCULAR HGB CONC 33 g/dl (31.0-36.0); MEAN CORPUSCULAR VOLUME 96 fL (82-100); MONOCYTES # (AUTO) 1.1 /CMM (0.1-1.30); MONOCYTES % (AUTO) 11.1 % (2.0-12.0); NEUTROPHILS % (AUTO) 79.7 % (43.0-81.0); PLATELET COUNT (AUTO) 307 /CMM (150-450); RDW COEFFICIENT OF VARIATION 14.3 (11.5-15.0); RED BLOOD CELL COUNT(AUTO) 3.41 MIL/uL (4.0-5.2)
[2016-08-23] MEDS ORDERED: POTASSIUM CHLORIDE 20 MEQ POWDER PACKET GT ONE (14:30)
[2016-08-23] MEDS ORDERED: POTASSIUM CHLORIDE 20 MEQ TAB.PRT.SR PO ONE (14:30)
[2016-08-23 16:00] VITALS: BP 119/64
[2016-08-23] MEDS: GLYTROL 1,000 ML BAG GT PRN (17:27)
[2016-08-23 20:00] VITALS: BP 119/64
[2016-08-24] VITALS: BP 124/60
[2016-08-24] MEDS: BLOOD SUGAR DIAGNOSTIC 1 EACH STRIP IN SCH ×3 (00:43→12:06)
[2016-08-24] MEDS: INSULIN REGULAR, HUMAN 100 UNIT/ML 3 ML VIAL SQ PRN ×2 (00:44→12:04)
[2016-08-24] MEDS ORDERED: SECONDARY IV SET 1 EA INFUS.SET MC ONE (01:15)
[2016-08-24] MEDS ORDERED: IV SET PRIMARY PUMP SET 1 EA INFUS.SET MC ONE (01:15)
[2016-08-24] MEDS: VANCOMYCIN 500 MG in IV D5W 100 ML IV SCH ×2 (01:29→12:05)
[2016-08-24] MEDS: IPRATROPIUM NEB FS 0.5 MG/2.5 ML AMPUL.NEB HHN SCH ×3 (01:36→13:54)
[2016-08-24] MEDS: ALBUTEROL FS 2.5 MG/0.5 ML VIAL.NEB HHN SCH ×3 (01:36→13:54)
[2016-08-24 04:00] VITALS: BP 143/71
[2016-08-24] MEDS: LACTOBACILLUS RHAMNOSUS GG 1 EACH CAP.SPRINK GT SCH (04:28)
[2016-08-24 06:40] LABS: BASOPHILS % (AUTO) 0.2 % (0.0-2.0); HEMATOCRIT 32 % (33-45); HEMOGLOBIN 10.8 g/dL (11.5-14.8); LYMPHOCYTES # (AUTO) 0.7 /CMM (0.8-4.8); LYMPHOCYTES % (AUTO) 10.3 % (20.0-44.0); MEAN CORPUSCULAR HEMOGLOBIN 32 PG (26.0-33.0); MEAN CORPUSCULAR HGB CONC 33 g/dl (31.0-36.0); MEAN CORPUSCULAR VOLUME 95 fL (82-100); MONOCYTES # (AUTO) 0.6 /CMM (0.1-1.30); MONOCYTES % (AUTO) 8.8 % (2.0-12.0); NEUTROPHILS # (AUTO) 5.8 /CMM (1.8-8.9); NEUTROPHILS % (AUTO) 80.7 % (43.0-81.0); PLATELET COUNT (AUTO) 276 /CMM (150-450); RDW COEFFICIENT OF VARIATION 13.9 (11.5-15.0); WHITE BLOOD COUNT (AUTO) 7.2 K/uL (4.3-11.0)
[2016-08-24 06:50] LABS: CALCIUM, SERUM 8.2 mg/dL (8.5-10.1); CREATININE 0.3 mg/dL (0.6-1.3); MAGNESIUM 1.9 mg/dL (1.8-2.4); PHOSPHORUS 3.3 mg/dL (2.5-4.9); POTASSIUM 3.5 mmol/L (3.5-5.1)
[2016-08-24 08:00] VITALS: BP 143/66
[2016-08-24] MEDS: methylPREDNISolone SOD SUCC 125 MG/2ML VIAL IV SCH ×2 (08:44→12:04)
[2016-08-24] MEDS: CHLORHEXIDINE GLUCONATE 15 ML UDC MM SCH (08:44)
[2016-08-24] MEDS: PANTOPRAZOLE 40 MG VIAL IV SCH (08:44)
[2016-08-24] MEDS: METOCLOPRAMIDE HCL 10 MG/10 ML UDC GT SCH ×2 (08:45→12:04)
[2016-08-24] MEDS: MULTIVIT, IRON, MIN NO. 8, FA 1 TAB TABLET GT SCH (08:45)
[2016-08-24] MEDS: HEPARIN SODIUM, PORCINE 5000 UNITS/1 ML VIAL SQ SCH (08:45)
[2016-08-24] MEDS: SENNOSIDES 8.6 MG TABLET GT SCH (08:45)
[2016-08-24] MEDS: DOCUSATE SODIUM LIQ 100 MG/10 ML UDC GT SCH (08:47)
[2016-08-24] MEDS ORDERED: RXVAN XX (10:21)
[2016-08-24] MEDS ORDERED: PRED20TA PO (10:28)
[2016-08-24] MEDS ORDERED: PRED10TA PO (10:28)
[2016-08-24] MEDS ORDERED: PRED20TA GT (10:28)
[2016-08-24] MEDS ORDERED: PRED50TA PO (10:28)
[2016-08-24 12:00] VITALS: BP 154/75
[2016-08-24] MEDS: IV NS 0.9% 1,000 ML IV PRN (12:17)
[2016-08-24 16:00] VITALS: BP 141/62
[2016-08-24] MEDS ORDERED: methylPREDNISolone SOD SUCC 125 MG/2ML VIAL IV SCH (17:00)
== END 2016-08-24 16:15 | DRG 720 ==
LOC: ER 10:05 → TELE1 11:24
PROVIDERS: ADMIT Internal Medicine; ATTEND Internal Medicine
PROC: 5A1955Z Respiratory Ventilation, Greater than 96 Consecutive Hours (ICD-10-PCS; principal; 2016-08-19)
DX: A41.01 Sepsis due to Methicillin susceptible Staphylococcus aureus (principal); J96.21 Acute and chronic respiratory failure with hypoxia; J69.0 Pneumonitis due to inhalation of food and vomit; G93.40 Encephalopathy, unspecified; I50.33 Acute on chronic diastolic (congestive) heart failure; Z99.11 Dependence on respirator [ventilator] status; E87.2 Acidosis; Z93.0 Tracheostomy status; G61.0 Guillain-Barre syndrome; R13.10 Dysphagia, unspecified; R53.2 Functional quadriplegia; E44.0 Moderate protein-calorie malnutrition; J44.1 Chronic obstructive pulmonary disease with (acute) exacerbation; E11.9 Type 2 diabetes mellitus without complications; Z93.1 Gastrostomy status; K21.9 Gastro-esophageal reflux disease without esophagitis; N39.0 Urinary tract infection, site not specified; I11.0 Hypertensive heart disease with heart failure; J44.0 Chronic obstructive pulmonary disease with (acute) lower respiratory infection; B95.62 Methicillin resistant Staphylococcus aureus infection as the cause of diseases classified elsewhere; E87.6 Hypokalemia; R19.7 Diarrhea, unspecified; D64.9 Anemia, unspecified; J98.11 Atelectasis; Y95 Nosocomial condition
CPT/HCPCS: 31720; 36415; 36600; 71010-TC; 80048-TC; 80053-TC; 80076-TC; 80202-TC; 81000-TC; 82553-TC; 82962-TC; 83605-TC; 83735-TC; 84100-TC; 84484-TC; 85025-TC; 85610-TC; 85730-TC; 87040-TC; 87070-TC; 87081-TC; 87086-TC; 87400; 92611-TC; 93307-TC; 94003-TC; 94761-TC; 97003-TC; A4606; A4623; A6402; C9113; J0696; J1644; J1815; J1956; J2543; J2930; J3370; J3480; J3490; J7030; J7050; J7060; J8597; Z7610

== ENCOUNTER 2016-12-05 12:10 | Inpatient (IN) | payer MEDICAID ==
[~2016-12-05] VITALS: Ht 162.6 cm; Wt 56.7 kg
[~2016-12-05 12:10] MED LIST changes: -ACET325T53 GT; -DOCU-25 GT; +PRED10TA PO; +PRED20TA GT; +PRED20TA PO; +PRED50TA PO; +RXVAN XX
--- NOTE | 2016-12-05 12:21 | NUR ---
PT BIB RA FROM SNF FOR LOW BP. PER SNF, PT WAS HYPOTENSIVE. PER EMS AND UPON TRIAGE, PT IS NORMOTENSIVE AND APPEARS IN NO ACUTE DISTRESS. RESP EVEN UNLABORED ON VENT AT BASELINE SETTINGS. IV ACESS PRESENT FROM FACILITY. SKIN WARM NONDIAPHORETIC. IN ER BED 07 ON MONITOR.
[2016-12-05] MEDS ORDERED: IV NS 0.9% 1,000 ML BAG IV ONE ×2 (12:30→13:30)
[2016-12-05 12:31] LABS: BASOPHILS # (AUTO) 0.2 /CMM (0.0-0.2); BASOPHILS % (AUTO) 0.8 % (0.0-2.0); EOSINOPHILS # (AUTO) 0.2 /CMM (0.0-0.7); EOSINOPHILS % (AUTO) 0.9 % (0.0-6.0); HEMATOCRIT 28 % (33-45); HEMOGLOBIN 9.9 g/dL (11.5-14.8); LYMPHOCYTES # (AUTO) 1.1 /CMM (0.8-4.8); LYMPHOCYTES % (AUTO) 4.5 % (20.0-44.0); MEAN CORPUSCULAR HEMOGLOBIN 34 PG (26.0-33.0); MEAN CORPUSCULAR HGB CONC 35 g/dl (31.0-36.0); MEAN CORPUSCULAR VOLUME 95 fL (82-100); MONOCYTES # (AUTO) 1.1 /CMM (0.1-1.30); MONOCYTES % (AUTO) 4.2 % (2.0-12.0); NEUTROPHILS # (AUTO) 22.5 /CMM (1.8-8.9); NEUTROPHILS % (AUTO) 89.6 % (43.0-81.0); PLATELET COUNT (AUTO) 278 /CMM (150-450); RDW COEFFICIENT OF VARIATION 12.2 (11.5-15.0); RED BLOOD CELL COUNT(AUTO) 2.95 MIL/uL (4.0-5.2); WHITE BLOOD COUNT (AUTO) 25.1 K/uL (4.3-11.0)
[2016-12-05 12:45] LABS: CALCIUM, SERUM 8.5 mg/dL (8.5-10.1); CARBON DIOXIDE 25 mmol/L (21-32); CHLORIDE 93 mmol/L (98-107); CREATININE 0.3 mg/dL (0.6-1.3); GLUCOSE 131 mg/dL (74-106); POTASSIUM 3.8 mmol/L (3.5-5.1); SODIUM SERUM 127 mmol/L (136-145); UREA NITROGEN, BLOOD 21 mg/dL (7-18)
[2016-12-05 12:48] LABS: INR 0.93 (0.87-1.13); PROTHROMBIN TIME 9.7 SECS (9.5-12.7)
[2016-12-05] MEDS ORDERED: ZINC220C8 GT (12:50)
[2016-12-05] MEDS ORDERED: [UNRECOGNIZED DRUG - CODE] IV (12:50)
[2016-12-05] MEDS ORDERED: ALBU2.5V13 IH (12:50)
[2016-12-05] MEDS ORDERED: BLOO-668 IN (12:50)
[2016-12-05] MEDS ORDERED: ASCO500S2 GT (12:50)
[2016-12-05] MEDS ORDERED: DOCU50LI GT (12:50)
[2016-12-05] MEDS ORDERED: VANC750V IV (12:50)
[2016-12-05] MEDS ORDERED: CEFT1VIA15 IV (12:50)
[2016-12-05] MEDS ORDERED: HYDR-4075 GT (12:50)
[2016-12-05] MEDS ORDERED: INSU100V27 SQ (12:50)
[2016-12-05] MEDS ORDERED: NA P133E RC (12:50)
[2016-12-05] MEDS ORDERED: ATEN50TA GT (12:50)
[2016-12-05] MEDS ORDERED: NUT.237L30 GT (12:50)
[2016-12-05] MEDS ORDERED: IPRA0.2S9 IH (12:50)
[2016-12-05] MEDS ORDERED: ACET650S26 GT (12:50)
[2016-12-05 12:51] LABS: ALANINE AMINOTRANSFERASE 64 U/L (12-78); ALBUMIN 2.8 g/dL (3.4-5.0); ALKALINE PHOSPHATASE 148 U/L (46-116); ASPARTATE AMINOTRANSFERASE 33 U/L (15-37); BILIRUBIN,DIRECT 0.2 mg/dL (0.0-0.2); BILIRUBIN,TOTAL 0.5 mg/dL (0.2-1.0); TOTAL PROTEIN, SERUM 6.9 g/dL (6.4-8.2)
[2016-12-05 12:53] LABS: TROPONIN I < 0.017 ng/mL (0.00-0.056)
[2016-12-05] MEDS ORDERED: AMIN30LI4 GT (12:54)
[2016-12-05] MEDS ORDERED: PIPERACILLIN /TAZOBACTAM 3.375 G in IV D5W 50 ML IV ONE (13:00)
--- NOTE | 2016-12-05 13:56 | NUR ---
[facility] 110
[2016-12-05 14:26] LABS: APPEARANCE,URINE Clear (CLEAR); BILIRUBIN,URINE Negative (NEGATIVE); BLOOD, URINE Small Ery/uL (NEGATIVE); COLOR,URINE Yellow (YELLOW); KETONES,URINE Negative (NEGATIVE); LEUKOCYTE ESTERASE ,URINE Trace (NEGATIVE); NITRITE, URINE Negative (NEGATIVE); PROTEIN,URINE Trace mg/dl (NEGATIVE); UGLUCOSE Negative (NEGATIVE); UROBILINOGEN,URINE 0.2 EU/dL (0.2)
--- NOTE | 2016-12-05 14:27 | NUR ---
REPORT GIVEN TO KATIE MARCOS FOR ISRAEL
[2016-12-05 14:40] LABS: BACTERIA,URINE Few /HPF (None Seen); SQUAMOUS EPITHELIAL CELL,UR Few /HPF (None Seen)
[2016-12-05] MEDS ORDERED: FEE PK DOSING 1 MIN EA MC ONE (14:53)
[2016-12-05 15:00] VITALS: BP 134/74
[2016-12-05] MEDS: IV NS 0.9% 1,000 ML IV PRN (15:30)
[2016-12-05] MEDS: VANCOMYCIN 1 GM in IV D5W 250 ML IV SCH (15:30)
[2016-12-05 16:00] VITALS: BP 130/75
[2016-12-05] MEDS ORDERED: DEXTROSE 50%-WATER 50 ML DISP.SYRIN IV PRN (16:00)
--- NOTE | 2016-12-05 16:00 | NUR ---
Admitted patient from ER with Dx of PNA. Patient opens eyes, tracks and able to follow simple command. vitals stable, afebrile. On mech vent, sat wnl, no distress. Sacral redness with some rash on the abdomen. wound care consult with mattress ordered. IVF started. Family at bedside.
[2016-12-05] MEDS: BLOOD SUGAR DIAGNOSTIC 1 EACH STRIP IN SCH ×2 (17:58→23:06)
[2016-12-05] MEDS: GLYTROL 1,000 ML BAG GT PRN (17:58)
[2016-12-05] MEDS: INSULIN REGULAR, HUMAN 100 UNIT/ML 3 ML VIAL SQ PRN ×2 (17:59→23:07)
[2016-12-05] MEDS: PIPERACILLIN /TAZOBACTAM 2.25 G in IV D5W 50 ML IV SCH ×2 (18:00→23:06)
[2016-12-05] MEDS ORDERED: PIPERACILLIN /TAZOBACTAM 3.375 G in IV D5W 50 ML IV SCH (19:00)
[2016-12-05] MEDS: ALBUTEROL FS 2.5 MG/0.5 ML VIAL.NEB NEB SCH (19:10)
[2016-12-05 20:00] VITALS: BP 93/42
[2016-12-05 20:04] VITALS: BP 93/42
[2016-12-05 21:32] LABS: ABG BASE EXCESS -0.3 mmol/L; ABG OXYGEN SATURATION 97.8 % (92.0-98.5); ABG PCO2 37.9 mmHg (35.0-45.0); ABG PH 7.419 (7.350-7.450); ABG PO2 118.4 mmHg (75.0-100.0); AaDO2 123.2 mmHg; COHb 0.3 % (0.5-1.5); MetHb 0.7 % (0.0-1.5); O2Hb 96.8 % (94.0-97.0); PEEP,BG 5 cm H2O; SITE, ABG Left Radial; VT, ABG 500 mL
[2016-12-06] VITALS: BP 123/58
[2016-12-06] MEDS: ALBUTEROL FS 2.5 MG/0.5 ML VIAL.NEB NEB SCH ×4 (01:18→20:10)
[2016-12-06 04:00] VITALS: BP 99/50
[2016-12-06] MEDS: IV NS 0.9% 1,000 ML IV PRN ×2 (05:03→23:18)
[2016-12-06] MEDS: PIPERACILLIN /TAZOBACTAM 2.25 G in IV D5W 50 ML IV SCH ×4 (05:03→23:15)
[2016-12-06] MEDS: INSULIN REGULAR, HUMAN 100 UNIT/ML 3 ML VIAL SQ PRN ×4 (05:12→23:49)
[2016-12-06] MEDS: BLOOD SUGAR DIAGNOSTIC 1 EACH STRIP IN SCH ×4 (05:14→23:15)
[2016-12-06 06:37] LABS: CALCIUM, SERUM 8.1 mg/dL (8.5-10.1); CARBON DIOXIDE 24 mmol/L (21-32); CHLORIDE 106 mmol/L (98-107); CREATININE 0.3 mg/dL (0.6-1.3); GLUCOSE 166 mg/dL (74-106); SODIUM SERUM 141 mmol/L (136-145); UREA NITROGEN, BLOOD 16 mg/dL (7-18)
[2016-12-06 06:45] LABS: POTASSIUM 2.8 mmol/L (3.5-5.1)
--- NOTE | 2016-12-06 07:06 | NUR ---
RN:ICU: ENDORSED AM POTASSIUM LEVEL TO DAYSHIFT. NO ECTOPY NOTED ON TELE MONITOR. PT STABLE.
[2016-12-06] MEDS: VANCOMYCIN 1 GM in IV D5W 250 ML IV SCH (07:58)
[2016-12-06 08:00] VITALS: BP 101/51
--- NOTE | 2016-12-06 08:00 | NUR ---
RN [facility] RECEIVED PATIENT AWAKE WITH ON GOING IVF AFEBRILE WITH ON GOING GLYTROL RUNNING AT 50 ML/HR, 5 ML RESIDUAL NOTED VITAL SIGNS WNL NO OTHER PROBLEMS SEEN AT THE TIME MONITORED CLOSELY
[2016-12-06] MEDS: POTASSIUM CHLORIDE 20 MEQ POWDER PACKET PO SCH ×3 (11:22→13:57)
[2016-12-06 12:00] VITALS: BP 100/56
[2016-12-06 16:00] VITALS: BP_SYST 100; BP_SYST 108; BP_DIAS 60
[2016-12-06] MEDS: PROSOURCE / PROSTAT (PYXIS) 30 ML UDC GT SCH (17:10)
[2016-12-06] MEDS: LACTOBACILLUS RHAMNOSUS GG 1 EACH CAP.SPRINK GT SCH (17:10)
[2016-12-06] MEDS: GLYTROL 1,000 ML BAG GT PRN (18:28)
[2016-12-06 20:00] VITALS: BP 104/44
[2016-12-06] MEDS: Z GUARD REMEDY 2 OZ OINT TP SCH (22:16)
[2016-12-07] VITALS: BP 125/57
[2016-12-07] MEDS ORDERED: HYDROCODONE/APAP 5/325MG 1 EACH TABLET ONE (00:44)
[2016-12-07] MEDS: HYDROCODONE/APAP 5/325MG 1 EACH TABLET PO PRN (00:48)
[2016-12-07] MEDS: ALBUTEROL FS 2.5 MG/0.5 ML VIAL.NEB NEB SCH ×4 (01:32→19:30)
[2016-12-07] MEDS: VANCOMYCIN 1 GM in IV D5W 250 ML IV SCH ×2 (03:16→20:51)
[2016-12-07 04:00] VITALS: BP 91/40
[2016-12-07] MEDS: BLOOD SUGAR DIAGNOSTIC 1 EACH STRIP IN SCH ×4 (05:57→23:12)
[2016-12-07] MEDS: INSULIN REGULAR, HUMAN 100 UNIT/ML 3 ML VIAL SQ PRN ×4 (05:58→23:18)
[2016-12-07] MEDS: PIPERACILLIN /TAZOBACTAM 2.25 G in IV D5W 50 ML IV SCH ×4 (06:27→23:39)
[2016-12-07 06:54] LABS: CALCIUM, SERUM 7.8 mg/dL (8.5-10.1); CARBON DIOXIDE 22 mmol/L (21-32); CHLORIDE 109 mmol/L (98-107); CREATININE 0.3 mg/dL (0.6-1.3); GLUCOSE 146 mg/dL (74-106); POTASSIUM 3.6 mmol/L (3.5-5.1); SODIUM SERUM 142 mmol/L (136-145); UREA NITROGEN, BLOOD 17 mg/dL (7-18)
[2016-12-07 07:43] LABS: BASOPHILS # (AUTO) 0.1 /CMM (0.0-0.2); BASOPHILS % (AUTO) 0.5 % (0.0-2.0); EOSINOPHILS # (AUTO) 0.7 /CMM (0.0-0.7); EOSINOPHILS % (AUTO) 5.9 % (0.0-6.0); HEMATOCRIT 24 % (33-45); HEMOGLOBIN 8.1 g/dL (11.5-14.8); LYMPHOCYTES # (AUTO) 1.7 /CMM (0.8-4.8); MEAN CORPUSCULAR HEMOGLOBIN 33 PG (26.0-33.0); MEAN CORPUSCULAR HGB CONC 35 g/dl (31.0-36.0); MEAN CORPUSCULAR VOLUME 96 fL (82-100); MONOCYTES % (AUTO) 8.3 % (2.0-12.0); NEUTROPHILS # (AUTO) 8.5 /CMM (1.8-8.9); NEUTROPHILS % (AUTO) 71.3 % (43.0-81.0); PLATELET COUNT (AUTO) 247 /CMM (150-450); RDW COEFFICIENT OF VARIATION 13.4 (11.5-15.0); RED BLOOD CELL COUNT(AUTO) 2.46 MIL/uL (4.0-5.2); WHITE BLOOD COUNT (AUTO) 11.9 K/uL (4.3-11.0)
[2016-12-07 08:00] VITALS: BP 100/51
[2016-12-07] MEDS: Z GUARD REMEDY 2 OZ OINT TP SCH ×2 (08:53→20:52)
[2016-12-07] MEDS: LACTOBACILLUS RHAMNOSUS GG 1 EACH CAP.SPRINK GT SCH ×2 (08:53→17:06)
[2016-12-07] MEDS: GLYTROL 1,000 ML BAG GT PRN (08:53)
[2016-12-07] MEDS: PROSOURCE / PROSTAT (PYXIS) 30 ML UDC GT SCH ×2 (08:53→17:06)
[2016-12-07 12:00] VITALS: BP 130/66
--- NOTE | 2016-12-07 12:30 | NUR ---
TELE/RN: DR CERRATO AT BEDSIDE, ABN LABS AND STATUS DW MD. INFORMED OF NEED FOR DVT CHEM PROPHYLAXIS, PER MD "I'LL TAKE A LOOK AND SEE IF SHE NEEDS IT, IF YES THEN I'LL PUT ORDERS IN."
--- NOTE | 2016-12-07 12:33 | NUR ---
WOUND CARE CONSULT: PT PRESENTS WITH SACRAL SCARRING AND STAINING OF SKIN. SACRAL AREA IS BONY. PT IS VENT-DEPENDENT AND INCONTINENT OF URINE AND STOOL. PT ON FIRST STEP MATTRESS. SKIN TO BE KEPT CLEAN AND DRY. PT TO BE TURNED AND REPOSITIONED EVERY 2 HRS PT CONDITION PERMITS, HEELS FLOATED. ALL SKIN PROTECTION MEASURES IN PLACE AND DISCUSSED WITH NURSING STAFF. DR CERRATO IN TO EXAMINE PT. PT FOLLOWED BY PLASTICS TEAM. DEFER WOUND TREATMENT PLAN TO PLASTICS TEAM. WILL SEE PRN. HEADLEY IN AGREEMENT WITH PLAN OF CARE. Addendum: 12/07/16 at 1235 by DEIRDRE MCMAHON WNDNU Amended: Links added.
--- NOTE | 2016-12-07 15:00 | NUR ---
TELE/RN: BED BATH, WOUND CARE RENDERED. PERFORMED STRAIGHT CATH FOR URINE SAMPLE ORDERED BY MAE MCKINNEY. 120 CC OUTPUT OF CLEAR YELLOW URINE OUTPUT NOTED. LAB CALLED FOR SPECIMEN PRICING ASSOCIATE
[2016-12-07 16:00] VITALS: BP 100/37
--- NOTE | 2016-12-07 17:28 | NUR ---
TELE/RN: F/U WITH DR CERRATO REGARDING DVT CHEM PROPHYLAXIS, MED REC. AWAITING ORDERS.
--- NOTE | 2016-12-07 19:10 | NUR ---
MACHINE BURRER OPENING NOTES RECEIVED REPORT FROM AM RN. PATIENT A/A/O X1-2, NON-VERBAL. TRACH INTACT AND TOLERATING VENT SETTINGS. NO RESPIRATORY DISTRESS NOTED. ON TELE SINUS RHYTHM W/ PULSES PRESENT. SKIN WARM TO TOUCH. G-TUBE INTACT, PATENT AND FLUSHING WELL. GTF RUNNING @ 50 ML/HR, TOLERATING WELL. NO RESIDUAL NOTED. RIGHT FOREARM IV PATENT W/ DRESSING CDI AND NS @ 75 ML/HR. NO S/S OF PAIN OR DISCOMFORT @ THIS TIME. SAFETY MEASURES IN PLACE W/ SIDE RAILS UP, BED LOCKED IN LOWEST POSITION & CALL LIGHT WITHIN REACH. FAMILY @ BEDSIDE. WILL CONTINUE TO MONITOR.
[2016-12-07 20:00] VITALS: BP 117/56
[2016-12-07] MEDS: IV NS 0.9% 1,000 ML IV PRN (20:56)
[2016-12-08] VITALS: BP 168/74
[2016-12-08] MEDS: HYDROCODONE/APAP 5/325MG 1 EACH TABLET PO PRN (00:22)
[2016-12-08] MEDS: ALBUTEROL FS 2.5 MG/0.5 ML VIAL.NEB NEB SCH ×4 (01:44→19:44)
[2016-12-08 04:00] VITALS: BP 120/66
[2016-12-08] MEDS: PIPERACILLIN /TAZOBACTAM 2.25 G in IV D5W 50 ML IV SCH ×4 (05:28→23:42)
[2016-12-08] MEDS: GLYTROL 1,000 ML BAG GT PRN (05:28)
[2016-12-08] MEDS: BLOOD SUGAR DIAGNOSTIC 1 EACH STRIP IN SCH ×4 (05:41→23:42)
--- NOTE | 2016-12-08 05:41 | NUR ---
MEDICAL POLICY SPECIALIST NOTE PATIENT STABLE. BS 112. NO COVERAGE NEEDED.
--- NOTE | 2016-12-08 06:30 | NUR ---
THERAPY SITE COORDINATOR CLOSING NOTES PATIENT A/A/O X1-2, NON-VERBAL. TRACH INTACT AND TOLERATING VENT SETTINGS. NO RESPIRATORY DISTRESS NOTED. ON TELE SINUS RHYTHM W/ PULSES PRESENT. SKIN WARM TO TOUCH. G-TUBE INTACT, PATENT AND FLUSHING WELL. GTF RUNNING @ 50 ML/HR, TOLERATING WELL. NO RESIDUAL NOTED. RIGHT FOREARM IV PATENT W/ DRESSING CDI AND NS @ 75 ML/HR. NO S/S OF PAIN OR DISCOMFORT @ THIS TIME. SAFETY MEASURES IN PLACE W/ SIDE RAILS UP, BED LOCKED IN LOWEST POSITION & CALL LIGHT WITHIN REACH. FAMILY @ BEDSIDE. WILL ENDORSE TO DAY SHIFT FOR ISRAEL.
[2016-12-08 06:35] LABS: BASOPHILS # (AUTO) 0.1 /CMM (0.0-0.2); BASOPHILS % (AUTO) 0.5 % (0.0-2.0); EOSINOPHILS % (AUTO) 8.9 % (0.0-6.0); HEMATOCRIT 25 % (33-45); HEMOGLOBIN 8.5 g/dL (11.5-14.8); LYMPHOCYTES # (AUTO) 1.6 /CMM (0.8-4.8); LYMPHOCYTES % (AUTO) 13.8 % (20.0-44.0); MEAN CORPUSCULAR HEMOGLOBIN 33 PG (26.0-33.0); MEAN CORPUSCULAR HGB CONC 34 g/dl (31.0-36.0); MEAN CORPUSCULAR VOLUME 97 fL (82-100); MONOCYTES # (AUTO) 1.1 /CMM (0.1-1.30); MONOCYTES % (AUTO) 9.4 % (2.0-12.0); NEUTROPHILS # (AUTO) 7.7 /CMM (1.8-8.9); NEUTROPHILS % (AUTO) 67.4 % (43.0-81.0); PLATELET COUNT (AUTO) 283 /CMM (150-450); RDW COEFFICIENT OF VARIATION 13.6 (11.5-15.0); RED BLOOD CELL COUNT(AUTO) 2.57 MIL/uL (4.0-5.2); WHITE BLOOD COUNT (AUTO) 11.4 K/uL (4.3-11.0)
[2016-12-08 06:42] LABS: CALCIUM, SERUM 8.2 mg/dL (8.5-10.1); CARBON DIOXIDE 23 mmol/L (21-32); CHLORIDE 113 mmol/L (98-107); CREATININE 0.3 mg/dL (0.6-1.3); GLUCOSE 121 mg/dL (74-106); POTASSIUM 3.3 mmol/L (3.5-5.1); SODIUM SERUM 146 mmol/L (136-145); UREA NITROGEN, BLOOD 22 mg/dL (7-18)
--- NOTE | 2016-12-08 07:59 | NUR ---
POLY PACKER AND HEAT SEALER NOTES PATIENT A/A/O X1-2, NON-VERBAL. WITH TRACH TO VENT SETTINGS. NO RESPIRATORY DISTRESS NOTED. ON TELE SINUS RHYTHM HR 65 , SKIN WARM TO TOUCH. G-TUBE INTACT, PATENT AND FLUSHING WELL. GTF RUNNING @ 50 ML/HR, TOLERATING WELL. NO RESIDUAL NOTED. RIGHT FOREARM IV PATENT ON IVF NS @ 75 ML/HR. NO S/S OF PAIN OR DISCOMFORT @ THIS TIME. SAFETY MEASURES IN PLACE W/ SIDE RAILS UP, BED LOCKED IN LOWEST POSITION & CALL LIGHT WITHIN REACH. WILL CONT TO MONITOR CLOSELY
[2016-12-08 08:00] VITALS: BP 136/67
[2016-12-08] MEDS: LACTOBACILLUS RHAMNOSUS GG 1 EACH CAP.SPRINK GT SCH ×2 (08:47→16:45)
[2016-12-08] MEDS: Z GUARD REMEDY 2 OZ OINT TP SCH ×2 (08:47→20:56)
[2016-12-08] MEDS: PROSOURCE / PROSTAT (PYXIS) 30 ML UDC GT SCH ×2 (08:47→16:45)
[2016-12-08] MEDS ORDERED: POTASSIUM CHLORIDE 20 MEQ POWDER PACKET GT SCH (11:30)
[2016-12-08 12:00] VITALS: BP 131/68
[2016-12-08] MEDS ORDERED: ACETAMINOPHEN 650 MG/20.3 ML UDC GT PRN (13:00)
[2016-12-08] MEDS: IV NS 0.9% 1,000 ML IV PRN (13:12)
[2016-12-08] MEDS: VANCOMYCIN 1 GM in IV D5W 250 ML IV SCH (15:06)
--- NOTE | 2016-12-08 15:19 | NUR ---
HERB DOCTOR NOTE SPOKE WITH DR MONTALVO NOTIFIED THAT PATIENT HAS EDEMA BOTH UPPER AND LOWER EXTREMITIES ON IVF AT 75 ML PER HOUR , ORDERED TO CHANGE IVF TO 50 ML PER HOUR. WILL F\U
--- NOTE | 2016-12-08 15:53 | NUR ---
CONSTRUCTION TRADES CONTRACTOR NOTE NEW HL ON RT HAND INSERTED MAYELIN 22 WITH GOOD BLOOD RETURN ,WILL CONT ADMINISTER VANCOMYCIN ORDERED
[2016-12-08 16:00] VITALS: BP 121/57
[2016-12-08] MEDS: INSULIN REGULAR, HUMAN 100 UNIT/ML 3 ML VIAL SQ PRN (17:47)
--- NOTE | 2016-12-08 18:41 | NUR ---
CUSTOMER SPECIALIST NOTE ALL NEEDS ATTENDED NOT IN ACUTE DISTRESS
--- NOTE | 2016-12-08 19:30 | NUR ---
RN INITIAL NOTE RECEIVED PT IN NO ACUTE DISTRESS IN BED. PT IS A/O X 1. PT IS ON MECHANICAL VENT VIA TRACH. TRACH SITE IS CLEAN DRY AND INTACT. PT IS TOLERATING VENT SETTING WELL WITH O2 SAT @ 100%. PT IS ON TELE WITH SR ON THE MONITOR. PT NOT SHOWING ANY S/S OF RESPIRATORY DISTRESS OR PAIN AT THIS TIME. PT HAS GTUBE THAT IS CLEAN DRY INTACT AND PATENT WITH GLYTROL @ 50ML/HR AND TOLERATING WELL WITH 0 RESIDUAL. PT HAS L HAND 22G THAT IS CLEAN DRY INTACT AND PATENT WITH NS @ 50ML/HR. BED IN LOW LOCK POSITION WITH RIALS UP X 2. CALL LIGHT WITHIN REACH AND ALL SAFETY MEASURES ENSURED AND CARRIED OUT.
[2016-12-08 20:00] VITALS: BP 126/61
[2016-12-09] VITALS: BP_SYST 121; BP_SYST 126; BP_DIAS 73; BP_DIAS 80
[2016-12-09] MEDS: ALBUTEROL FS 2.5 MG/0.5 ML VIAL.NEB NEB SCH ×3 (00:54→13:18)
[2016-12-09 04:00] VITALS: BP 133/66
[2016-12-09] MEDS: PIPERACILLIN /TAZOBACTAM 2.25 G in IV D5W 50 ML IV SCH ×2 (05:17→11:18)
[2016-12-09] MEDS: BLOOD SUGAR DIAGNOSTIC 1 EACH STRIP IN SCH ×2 (05:17→11:12)
[2016-12-09] MEDS: INSULIN REGULAR, HUMAN 100 UNIT/ML 3 ML VIAL SQ PRN ×2 (05:19→11:18)
[2016-12-09] MEDS: IV NS 0.9% 1,000 ML IV PRN (05:28)
[2016-12-09 05:52] LABS: BASOPHILS % (AUTO) 0.3 % (0.0-2.0); EOSINOPHILS % (AUTO) 6.2 % (0.0-6.0); HEMATOCRIT 29 % (33-45); LYMPHOCYTES # (AUTO) 1.2 /CMM (0.8-4.8); LYMPHOCYTES % (AUTO) 7.6 % (20.0-44.0); MEAN CORPUSCULAR HEMOGLOBIN 33 PG (26.0-33.0); MEAN CORPUSCULAR HGB CONC 34 g/dl (31.0-36.0); MEAN CORPUSCULAR VOLUME 97 fL (82-100); MONOCYTES # (AUTO) 0.6 /CMM (0.1-1.30); MONOCYTES % (AUTO) 3.4 % (2.0-12.0); NEUTROPHILS # (AUTO) 13.5 /CMM (1.8-8.9); NEUTROPHILS % (AUTO) 82.5 % (43.0-81.0); PLATELET COUNT (AUTO) 333 /CMM (150-450); RDW COEFFICIENT OF VARIATION 13.7 (11.5-15.0); RED BLOOD CELL COUNT(AUTO) 3.01 MIL/uL (4.0-5.2); WHITE BLOOD COUNT (AUTO) 16.4 K/uL (4.3-11.0)
[2016-12-09 06:05] LABS: CALCIUM, SERUM 8.9 mg/dL (8.5-10.1); CARBON DIOXIDE 24 mmol/L (21-32); CHLORIDE 110 mmol/L (98-107); CREATININE 0.3 mg/dL (0.6-1.3); GLUCOSE 139 mg/dL (74-106); POTASSIUM 3.3 mmol/L (3.5-5.1); SODIUM SERUM 145 mmol/L (136-145); UREA NITROGEN, BLOOD 12 mg/dL (7-18)
--- NOTE | 2016-12-09 07:30 | NUR ---
RN NOTES RECEIVED PT FROM PRICE ANALYST IN STABLE CONDITION. PT A&OX2, IS VENT TRACH DEPENDENT BUT ABLE TO MOUTH WORDS. TOLERATING VENT SETTINGS, NO SOB OR DISTRESS NOTED. SR ON THE TELE MONITOR. GTUBE FEEDING AT 50ML/HR. L HAND 22 GAUGE IV SITE DRY AND INTACT WITH NS RUNNING AT 50ML/HR. SIDE RAILS UPX3, CALL LIGHT WITHIN REACH, BED LOCKED AND IN LOWEST POSITION.WILL CONT TO MONITOR.
[2016-12-09 08:00] VITALS: BP 140/71
[2016-12-09] MEDS: LACTOBACILLUS RHAMNOSUS GG 1 EACH CAP.SPRINK GT SCH (09:05)
[2016-12-09] MEDS: VANCOMYCIN 1 GM in IV D5W 250 ML IV SCH (09:05)
[2016-12-09] MEDS: PROSOURCE / PROSTAT (PYXIS) 30 ML UDC GT SCH (09:48)
[2016-12-09] MEDS: Z GUARD REMEDY 2 OZ OINT TP SCH (09:48)
[2016-12-09] MEDS ORDERED: POTASSIUM CHLORIDE 20 MEQ POWDER PACKET GT SCH (10:30)
--- NOTE | 2016-12-09 10:51 | NUR ---
RN NOTES DR. MONTALVO AT BEDSIDE, UPDATE GIVEN. PER DR. MONTALVO PT OK TO D.C BACK TO [facility].
[2016-12-09] MEDS ORDERED: LEVOFLOXACIN 750 MG /D5W 150ML 750 MG in PREMIX 1 EA IV ONE ×2 (11:00→13:00)
[2016-12-09 12:00] VITALS: BP 114/69
--- NOTE | 2016-12-09 15:26 | NUR ---
RN NOTES REPORT GIVEN TO PRITI CORONA FROM [facility]. PT WILL BE PICKED UP BY AMBULANCE AT 1600.
[2016-12-09 16:00] VITALS: BP 149/62
[2016-12-09] MEDS ORDERED: FLUCONAZOLE (100 MG) 100 MG TABLET PO SCH (17:30)
--- NOTE | 2016-12-09 17:53 | NUR ---
RN NOTES PT DISCHARGED WITH EMT AND RESPIRATORY IN STABLE CONDITION. REPORT GIVEN.
[2016-12-11] MEDS ORDERED: LEVOFLOXACIN 750 MG /D5W 150ML 750 MG in PREMIX 1 EA IV SCH (13:00)
== END 2016-12-09 18:14 | DRG 720 ==
LOC: ER 12:12 → TELE1 14:20 → TELE-TD 16:39 → TELE1 12-06 10:06
PROVIDERS: ADMIT Nurse Practitioner Acute Care; ATTEND Nurse Practitioner Acute Care
PROC: 5A1955Z Respiratory Ventilation, Greater than 96 Consecutive Hours (ICD-10-PCS; principal; 2016-12-05)
DX: A41.9 Sepsis, unspecified organism (principal); J96.21 Acute and chronic respiratory failure with hypoxia; J69.0 Pneumonitis due to inhalation of food and vomit; E43 Unspecified severe protein-calorie malnutrition; J18.9 Pneumonia, unspecified organism; J15.9 Unspecified bacterial pneumonia; G93.40 Encephalopathy, unspecified; Z99.11 Dependence on respirator [ventilator] status; J44.0 Chronic obstructive pulmonary disease with (acute) lower respiratory infection; L89.152 Pressure ulcer of sacral region, stage 2; D68.59 Other primary thrombophilia; R53.2 Functional quadriplegia; E11.9 Type 2 diabetes mellitus without complications; D64.9 Anemia, unspecified; Z93.0 Tracheostomy status; E87.6 Hypokalemia; R13.10 Dysphagia, unspecified; K21.9 Gastro-esophageal reflux disease without esophagitis; Z93.1 Gastrostomy status; E88.09 Other disorders of plasma-protein metabolism, not elsewhere classified; E87.1 Hypo-osmolality and hyponatremia; G65.0 Sequelae of Guillain-Barre syndrome; E83.51 Hypocalcemia; L98.9 Disorder of the skin and subcutaneous tissue, unspecified; R21 Rash and other nonspecific skin eruption; I10 Essential (primary) hypertension; B37.49 Other urogenital candidiasis; R65.20 Severe sepsis without septic shock
CPT/HCPCS: 31720; 36415; 36600; 71010-TC; 80048-TC; 80076-TC; 80202-TC; 81000-TC; 82962-TC; 83605-TC; 84484-TC; 85025-TC; 85730-TC; 87040-TC; 87081-TC; 87086-TC; 94003-TC; 94762-TC; A4216; A4606; A6402; A7526; J1815; J1956; J2543; J3370; J7030; J7060; Z7610

== ENCOUNTER 2017-01-21 12:13 | Inpatient (IN) | payer MEDICAID ==
[2017-01-21] VITALS (20 sets, daily range): BP systolic 87–158; BP diastolic 45–72
[~2017-01-21] VITALS: Ht 157.5 cm; Wt 54.5 kg
[~2017-01-21 12:13] MED LIST changes: +ACET650S26 GT; +ALBU2.5V13 IH; +AMIN30LI4 GT; +ASCO500S2 GT; +ATEN50TA GT; +BLOO-668 IN; +CEFT1VIA15 IV; -CHLO473M2 MM; -DOCU50LI; +DOCU50LI GT; +HYDR-4075 GT; +INSU100V27 SQ; +IPRA0.2S9 IH; +NUT.237L30 GT; -PRED10TA PO; -PRED20TA GT; -PRED20TA PO; -PRED50TA PO; +VANC750V IV; +ZINC220C8 GT; +[UNRECOGNIZED DRUG - CODE] IV
--- NOTE | 2017-01-21 12:13 | NUR ---
HERBER FROM [facility] FOR ABDOMINAL DISTENTION, ABD OBSTRUCTION AND PNA. PT HAS RT WIRST #22 IV ACCESS CAMPUS PRESIDENT. PT ON VENT TRACH . PT HAS DIARRHEA FOUL SMELLING.
[2017-01-21] MEDS ORDERED: ONDANSETRON HCL/PF 4 MG/2 ML VIAL IVP ONE (12:30)
[2017-01-21] MEDS ORDERED: IV NS 0.9% 1,000 ML BAG IV ONE ×2 (12:30→17:30)
--- NOTE | 2017-01-21 12:30 | NUR ---
LEFT HAND #20 IV ACCESS. BLOOD SAMPLE COLLECTED SENT TO LAB
[2017-01-21 12:35] LABS: BASOPHILS # (AUTO) 0.8 /CMM (0.0-0.2); EOSINOPHILS # (AUTO) 0.4 /CMM (0.0-0.7); HEMATOCRIT 25 % (33-45); LYMPHOCYTES # (AUTO) 0.8 /CMM (0.8-4.8); LYMPHOCYTES % (AUTO) 2.1 % (20.0-44.0); MEAN CORPUSCULAR HEMOGLOBIN 33 PG (26.0-33.0); MEAN CORPUSCULAR HGB CONC 36 g/dl (31.0-36.0); MEAN CORPUSCULAR VOLUME 93 fL (82-100); MONOCYTES # (AUTO) 0.7 /CMM (0.1-1.30); MONOCYTES % (AUTO) 1.8 % (2.0-12.0); NEUTROPHILS # (AUTO) 35.4 /CMM (1.8-8.9); NEUTROPHILS % (AUTO) 93.1 % (43.0-81.0); PLATELET COUNT (AUTO) 315 /CMM (150-450); RDW COEFFICIENT OF VARIATION 12.2 (11.5-15.0); RED BLOOD CELL COUNT(AUTO) 2.75 MIL/uL (4.0-5.2)
[2017-01-21 12:38] LABS: WHITE BLOOD COUNT (AUTO) 38.1 K/uL (4.3-11.0)
[2017-01-21] MEDS ORDERED: ONDANSETRON HCL/PF 4 MG/2 ML VIAL ONE (12:38)
[2017-01-21] MEDS ORDERED: BENA5TAB2 GT (12:42)
[2017-01-21] MEDS ORDERED: CLON0.1T GT (12:42)
[2017-01-21] MEDS ORDERED: METO-306 GT (12:42)
[2017-01-21] MEDS ORDERED: PIPE3.376 IV (12:42)
[2017-01-21] MEDS ORDERED: ACET650S26 GT (12:42)
[2017-01-21] MEDS ORDERED: FERR300L GT (12:42)
--- NOTE | 2017-01-21 12:43 | NUR ---
PT RECD TRACHED PORTEX 7 VIA [place] VENT. NOTED VENT SETTINGS GIVEN FROM TRANSPORT RT. NO RESP DISTRESS NOTED. VAT CLEANER CUFF PRESSURE NOTED. ALARMS ARE SET AND AUDIBLE, VENT PLUGGED INTO RED OUTLET, AMBU BAG BEDSIDE. WILL CONTINUE TO MONITOR. Addendum: 01/21/17 at 1246 by PANTERA TROTTER RT Amended: Links added.
[2017-01-21 12:50] LABS: INR 0.99 (0.87-1.13); PROTHROMBIN TIME 10.3 SECS (9.5-12.7)
[2017-01-21 12:52] LABS: ALANINE AMINOTRANSFERASE 28 U/L (12-78); ALBUMIN 2.4 g/dL (3.4-5.0); ALKALINE PHOSPHATASE 179 U/L (46-116); ASPARTATE AMINOTRANSFERASE 25 U/L (15-37); BILIRUBIN,DIRECT 0.3 mg/dL (0.0-0.2); BILIRUBIN,TOTAL 0.8 mg/dL (0.2-1.0); CALCIUM, SERUM 8.7 mg/dL (8.5-10.1); CARBON DIOXIDE 26 mmol/L (21-32); CHLORIDE 101 mmol/L (98-107); CREATININE 0.4 mg/dL (0.6-1.3); GLUCOSE 150 mg/dL (74-106); SODIUM SERUM 140 mmol/L (136-145); TOTAL PROTEIN, SERUM 7.4 g/dL (6.4-8.2); UREA NITROGEN, BLOOD 29 mg/dL (7-18)
[2017-01-21 12:54] LABS: TROPONIN I < 0.017 ng/mL (0.00-0.056)
[2017-01-21] MEDS ORDERED: POTASSIUM CHLORIDE 10 MEQ/50 ML PREMIXED IVPB FOR PERIPHERAL LINE IV ONE (13:00)
[2017-01-21] MEDS ORDERED: PIPERACILLIN /TAZOBACTAM 3.375 G in IV D5W 50 ML IV ONE (13:00)
--- NOTE | 2017-01-21 13:00 | NUR ---
VERBAL ORDER FROM DR PLUMMER POTASSIUM 30 MEQ [id number]/50 ML
[2017-01-21 13:28] LABS: BAND % (MANUAL) 16 % (0.0-5.0); LYMPHOCYTES % (MANUAL) 5 % (16-48); MONOCYTES % (MANUAL) 3 % (0-11.0); NEUTROPHILS % (MANUAL) 76 (42-76)
[2017-01-21] MEDS ORDERED: POTASSIUM CL. PREMIX PERIPHER. 50 ML ONE (13:36)
--- NOTE | 2017-01-21 13:48 | NUR ---
PT GETTING CLEANED. PRITI FARRAR WILL CALL WHEN READY FOR CT SCAN.
--- NOTE | 2017-01-21 13:57 | NUR ---
URINE AND STOOL SAMPLE COLLECTED SENT TO LAB
[2017-01-21 14:04] LABS: APPEARANCE,URINE Cloudy (CLEAR); BILIRUBIN,URINE Negative (NEGATIVE); BLOOD, URINE Negative Ery/uL (NEGATIVE); COLOR,URINE Yellow (YELLOW); KETONES,URINE Trace (NEGATIVE); LEUKOCYTE ESTERASE ,URINE Negative (NEGATIVE); NITRITE, URINE Negative (NEGATIVE); PROTEIN,URINE 30 mg/dl (NEGATIVE); UGLUCOSE Negative (NEGATIVE); UROBILINOGEN,URINE 0.2 EU/dL (0.2)
[2017-01-21] MEDS ORDERED: POTASSIUM CL. PREMIX PERIPHER. 100 ML ONE (14:04)
--- NOTE | 2017-01-21 14:20 | NUR ---
PT TAKENT TO CT
[2017-01-21 14:23] LABS: BACTERIA,URINE Few /HPF (None Seen); RBC,URINE 0-2 /HPF (0-2); SQUAMOUS EPITHELIAL CELL,UR Few /HPF (None Seen); WBC,URINE 0-2 /HPF (0-3)
--- NOTE | 2017-01-21 14:40 | NUR ---
GAVE REPORT TO DIOGO MARCOS ICU ROOM 254 DR US ADMITTING DX PNA AND BOWEL OBSTRUCTION
--- NOTE | 2017-01-21 16:10 | NUR ---
RN CHRONIC RECEIVED PATIENT FROM ER. ON A GURNEY. TRANSFERRED TO BED. 4 PERSON ASSIST. VENT SETTINGS REVIEWED AND VERIFIED. SUCTIONED TRACH FOR CLEARANCE. TEMP 99.9. NOTED TO HAVE SOME LOOSE STOOLS. SINUS TACH ON MONITOR. NORMAL BP. JEONG DRAINING URINE TO GRAVITY. TURNED AND REPOSITIONED ON THE BED FOR COMFORT AND WOUND PREVENTION.
[2017-01-21] MEDS ORDERED: LORAZEPAM INJ 2 MG/ML VIAL IVP PRN (17:30)
[2017-01-21] MEDS ORDERED: ONDANSETRON HCL/PF 4 MG/2 ML VIAL IVP PRN (17:30)
[2017-01-21] MEDS ORDERED: GLYTROL 1,000 ML BAG GT SCH ×2 (17:30→17:43)
[2017-01-21] MEDS ORDERED: ALBUTEROL FS 2.5 MG/0.5 ML VIAL.NEB IH PRN (17:30)
[2017-01-21] MEDS ORDERED: IPRATROPIUM NEB FS 0.5 MG/2.5 ML AMPUL.NEB IH PRN (17:30)
[2017-01-21] MEDS ORDERED: NA PHOS,M-B/NA PHOS,DI-BA 1 EA ENEMA RC PRN (17:30)
[2017-01-21] MEDS ORDERED: MAGNESIUM HYDROXIDE 30 ML UDC GT PRN (17:30)
[2017-01-21] MEDS ORDERED: BISACODYL SUPP (10 MG) 10 MG/SUPP.RECT SUPP.RECT RC PRN (17:30)
[2017-01-21] MEDS ORDERED: MORPHINE SULFATE INJ 2 MG/ML DISP.SYRIN IV PRN (17:30)
[2017-01-21] MEDS ORDERED: VANCOMYCIN 1 GM in IV D5W 250 ML IV ONE (17:40)
[2017-01-21] MEDS ORDERED: FEE PK DOSING 1 MIN EA MC ONE (17:56)
[2017-01-21 17:57] LABS: IRON, SERUM 24 ug/dl (50-175); TOTAL IRON BINDING CAPACITY 197 ug/dl (250-450)
[2017-01-21] MEDS: POTASSIUM CL. PREMIX PERIPHER. 50 ML IV SCH ×4 (18:21→21:47)
[2017-01-21] MEDS: PROSOURCE / PROSTAT (PYXIS) 30 ML UDC GT SCH (18:22)
[2017-01-21] MEDS ORDERED: GLYTROL 1,000 ML BAG GT PRN (18:30)
--- NOTE | 2017-01-21 19:30 | NUR ---
EXTRUDER OPERATOR VERTICAL RCD PT W/DX SEPSIS; PT IS OBTUNDED; NSR ON MONITOR. PORTEX 7 W/VENT SETTINGS AC 14 500 40% 5; THICK WHITE SECRETIONS NOTED. GLYTROL @ 45 ML/HR; MIN RESIDUAL NOTED. POTASSIUM RUNNING AT THIS TIME; 2 MORE BAGS PENDING.
[2017-01-21] MEDS: IV NS 0.9% 250 ML IV PRN (19:45)
[2017-01-21] MEDS: PIPERACILLIN /TAZOBACTAM 4.5 G in IV D5W 50 ML IV SCH (19:45)
[2017-01-21] MEDS: IPRATROPIUM NEB FS 0.5 MG/2.5 ML AMPUL.NEB HHN SCH (19:58)
[2017-01-21] MEDS: ALBUTEROL FS 2.5 MG/0.5 ML VIAL.NEB HHN SCH (19:59)
[2017-01-21] MEDS ORDERED: DEXTROSE 50%-WATER 50 ML DISP.SYRIN IV PRN (20:00)
--- NOTE | 2017-01-21 20:00 | NUR ---
SOCK EXAMINERMEDICAL DEVICE ENGINEER AT BEDSIDE. UPDATED WITH PLAN OF CARE.
[2017-01-21] MEDS: HEPARIN SODIUM, PORCINE 5000 UNITS/1 ML VIAL SQ SCH (20:44)
--- NOTE | 2017-01-21 23:33 | NUR ---
INSURANCE UNDERWRITER SALES PT TRANSFERRED TO [facility].
--- NOTE | 2017-01-21 23:40 | NUR ---
RN NOTES RECEIVED PATIENT FROM ICU WITH NO RESPIRATORY DISTRESS OR SHORTNESS OF BREATH. BREATHING EVEN AND UNLABORED. VENT SETTING WELL TOLERATED. OBTUNDED WITH NO PHYSICAL MANIFESTATION OF PAIN OR DISCOMFORT. FC PATENT AND INTACT DRAINING CLEAR YELLOW WITH NO FOUL ODOR URINE. VITAL SIGNS WNL. KEPT CLEAN AND DRY. WILL CONTINUE TO MONITOR.
[2017-01-22] VITALS: BP 110/47
[2017-01-22] MEDS: PIPERACILLIN /TAZOBACTAM 4.5 G in IV D5W 50 ML IV SCH ×5 (00:11→23:19)
[2017-01-22] MEDS: INSULIN REGULAR, HUMAN 100 UNIT/ML 3 ML VIAL SQ PRN ×5 (00:12→23:56)
[2017-01-22] MEDS: BLOOD SUGAR DIAGNOSTIC 1 EACH STRIP IN SCH ×5 (00:12→23:39)
[2017-01-22] MEDS: ALBUTEROL FS 2.5 MG/0.5 ML VIAL.NEB HHN SCH ×4 (02:08→19:51)
[2017-01-22] MEDS: IPRATROPIUM NEB FS 0.5 MG/2.5 ML AMPUL.NEB HHN SCH ×4 (02:08→19:51)
--- NOTE | 2017-01-22 03:30 | NUR ---
RN NOTES RECEIVED CALL FROM LAB RE: CRITICAL LOW POTASSIUM LEVEL. TEXT GREER, WAITING FOR RESPONSE
[2017-01-22 04:00] VITALS: BP 103/45
[2017-01-22] MEDS ORDERED: VANCOMYCIN 0.75 GM in IV D5W 250 ML IV SCH (06:00)
--- NOTE | 2017-01-22 06:08 | NUR ---
RN NOTES NO DISTRESS NOTED. BREATHING EVEN AND UNLABORED. NO PHYSICAL MANIFESTATION OF PAIN OR DISCOMFORT. NEEDS ATTENDED. STILL WAITING FOR MD'S RESPONSE RE: CRITICAL LOW POTASSIUM LEVEL 2.7. KEPT CLEAN AND DRY. WILL ENDORSE TO AM SHIFT FOR CONTINUITY OF CARE.
[2017-01-22 06:39] LABS: EOSINOPHILS # (AUTO) 0.6 /CMM (0.0-0.7); EOSINOPHILS % (AUTO) 2.1 % (0.0-6.0); HEMATOCRIT 24 % (33-45); HEMOGLOBIN 8.3 g/dL (11.5-14.8); LYMPHOCYTES # (AUTO) 0.7 /CMM (0.8-4.8); LYMPHOCYTES % (AUTO) 2.5 % (20.0-44.0); MEAN CORPUSCULAR HEMOGLOBIN 32 PG (26.0-33.0); MEAN CORPUSCULAR HGB CONC 34 g/dl (31.0-36.0); MEAN CORPUSCULAR VOLUME 94 fL (82-100); MONOCYTES # (AUTO) 0.5 /CMM (0.1-1.30); MONOCYTES % (AUTO) 1.6 % (2.0-12.0); NEUTROPHILS % (AUTO) 93.8 % (43.0-81.0); PLATELET COUNT (AUTO) 303 /CMM (150-450); RDW COEFFICIENT OF VARIATION 13.6 (11.5-15.0); RED BLOOD CELL COUNT(AUTO) 2.55 MIL/uL (4.0-5.2); WHITE BLOOD COUNT (AUTO) 29.8 K/uL (4.3-11.0)
[2017-01-22 06:50] LABS: INR 0.94 (0.87-1.13); PROTHROMBIN TIME 9.8 SECS (9.5-12.7)
[2017-01-22 06:57] LABS: ALANINE AMINOTRANSFERASE 26 U/L (12-78); ALKALINE PHOSPHATASE 169 U/L (46-116); ASPARTATE AMINOTRANSFERASE 15 U/L (15-37); BILIRUBIN,TOTAL 0.5 mg/dL (0.2-1.0); CALCIUM, SERUM 7.8 mg/dL (8.5-10.1); CARBON DIOXIDE 28 mmol/L (21-32); CHLORIDE 108 mmol/L (98-107); CREATININE 0.3 mg/dL (0.6-1.3); GLUCOSE 129 mg/dL (74-106); SODIUM SERUM 143 mmol/L (136-145); TOTAL PROTEIN, SERUM 6.6 g/dL (6.4-8.2); UREA NITROGEN, BLOOD 15 mg/dL (7-18)
[2017-01-22 06:59] LABS: TROPONIN I < 0.017 ng/mL (0.00-0.056)
[2017-01-22 07:15] LABS: POTASSIUM 2.6 mmol/L (3.5-5.1)
[2017-01-22] MEDS ORDERED: POTASSIUM CHLORIDE 20 MEQ POWDER PACKET GT ONE (07:16)
[2017-01-22 08:00] VITALS: BP_SYST 112; BP_SYST 90; BP_DIAS 44; BP_DIAS 58
--- NOTE | 2017-01-22 08:00 | NUR ---
TD/RN AM SHIFT INITIAL NOTES RECEIVED PT ASLEEP IN BED, PT IS OBTUNDED, NO GRIMACING NOTED. NO ACUTE CHANGE OF CONDITION NOTED. ON VENTILATOR, RATES SET PRESCRIBED, SATURATING @ 100%, LUNG SOUNDS CLEAR, SUCTIONED FOR AIRWAY CLEARANCE. ON TELE WITH SINUS RHYTHM, HR 89. IV SITES FLUSHED, APTENT WITH NO S/S OF INFECTION, SL. GT FEEDING ON GOING @ 45CC/HR, NO GASTRIC RESIDUAL NOTED, FLUSHED, PATENT. JEONG CATHETER INTACT NOTED WITH YELLOW URINE OUTPUT. PT IS COMFORTABLE AT THIS TIME. SCHEDULED AM MEDS TO BE GIVEN. CL WITHIN REACHED AND SAFETY MAINTAINED. ON GOING MONITORING.
[2017-01-22] MEDS: PANTOPRAZOLE 40 MG VIAL IV SCH (08:36)
[2017-01-22] MEDS: PROSOURCE / PROSTAT (PYXIS) 30 ML UDC GT SCH (08:36)
[2017-01-22] MEDS: HEPARIN SODIUM, PORCINE 5000 UNITS/1 ML VIAL SQ SCH ×2 (08:36→20:48)
[2017-01-22] MEDS: SIMETHICONE 80 MG TAB.CHEW GT SCH ×3 (08:37→16:56)
[2017-01-22] MEDS: FERROUS SULFATE UDC 300 MG/5 ML UDC GT SCH (08:37)
[2017-01-22] MEDS: METOCLOPRAMIDE HCL 10 MG/10 ML UDC GT SCH ×3 (08:37→16:56)
[2017-01-22] MEDS: SENNOSIDES 8.6 MG TABLET GT SCH (08:37)
[2017-01-22] MEDS: DOCUSATE SODIUM LIQ 100 MG/10 ML UDC GT SCH (08:37)
[2017-01-22] MEDS: MULTIVITAMINS,THERAGRAN 1 UDTAB TABLET PO SCH (08:37)
[2017-01-22] MEDS: ASCORBIC ACID 500 MG TABLET GT SCH (08:37)
[2017-01-22] MEDS: ZINC SULFATE 220 MG CAPSULE GT SCH (08:37)
[2017-01-22] MEDS ORDERED: Medication Not On Formulary EA (Cran/Vitc/Mannose/Inulin/Brom (Uti-Stat Liquid) 30 ML) GT SCH (09:00)
[2017-01-22] MEDS ORDERED: ACETAMINOPHEN 650 MG/20.3 ML UDC GT SCH (09:00)
[2017-01-22 09:33] LABS: BAND % (MANUAL) 6 % (0.0-5.0); EOSINOPHILS % (MANUAL) 2 % (0-4); LYMPHOCYTES % (MANUAL) 1 % (16-48); MONOCYTES % (MANUAL) 3 % (0-11.0); NEUTROPHILS % (MANUAL) 88 (42-76)
[2017-01-22 12:00] VITALS: BP 98/45
--- NOTE | 2017-01-22 12:00 | NUR ---
TD/RN NOON ROUNDS NO CHANGE OF CONDITION. PT SUCTIONED AND REPOSITIONED. MONITORING CONTINUED.
[2017-01-22] MEDS: VANCOMYCIN 0.75 GM in IV D5W 250 ML IV SCH (12:55)
[2017-01-22 16:00] VITALS: BP 114/54
[2017-01-22] MEDS: LACTOBACILLUS RHAMNOSUS GG 1 EACH CAP.SPRINK GT SCH (16:56)
[2017-01-22] MEDS ORDERED: Z GUARD REMEDY 4 OZ OINT TP PRN (17:30)
--- NOTE | 2017-01-22 18:00 | NUR ---
TD/RN AFTERNOON ROUNDS PM CARE PROVIDED, NO ACUTE CHANGE OF CONDITION. ON GOING MONITORING.
--- NOTE | 2017-01-22 19:45 | NUR ---
[facility]/LIBRARY ASSISTANT RECEIVED REPORT FROM DAY NURSE. PT IS NONVERBAL AND NOT RESPONSIVE. PT IS VENTED CURRENTLY TOLERATING CURRENT VENT SETTINGS. SATURATION IS CURRENTLY 99%. PT REQUIRES SOME SUCTIONING. PT IS ON G/TUBE FEEDING, WITH NO RESIDUALS. PT HAS A FEW SKIN ISSUES THAT ARE ADDRESSED IN FLOW SHEET. PT'S DAUGHTER AT BEDSIDE. PT WAS TURNED AND REPOSITION FOR COMFORT AND CARE.
[2017-01-22 20:00] VITALS: BP 120/54
[2017-01-22] MEDS: METRONIDAZOLE 500MG/ NS 100ML 500 MG in PREMIX 1 EA IV SCH (20:18)
[2017-01-22] MEDS: VANCOMYCIN HCL 125 MG/2.5 ML ORAL.SUSP PO SCH ×2 (20:18→23:19)
--- NOTE | 2017-01-22 22:00 | NUR ---
[facility]/CURRICULUM SUPERVISOR REPORT GIVEN TO NIGHT REGISTRY NURSE.
[2017-01-22] MEDS: TRAMADOL HCL 50 MG TABLET GT PRN (23:12)
[2017-01-22] MEDS: METOCLOPRAMIDE HCL 10 MG TABLET GT SCH (23:23)
[2017-01-23] VITALS (7 sets, daily range): BP systolic 91–171; BP diastolic 46–90
[2017-01-23] MEDS ORDERED: METOCLOPRAMIDE HCL 10 MG TABLET PO SCH
[2017-01-23] MEDS: IPRATROPIUM NEB FS 0.5 MG/2.5 ML AMPUL.NEB HHN SCH ×4 (01:35→19:49)
[2017-01-23] MEDS: ALBUTEROL FS 2.5 MG/0.5 ML VIAL.NEB HHN SCH ×4 (01:35→19:49)
[2017-01-23] MEDS: METRONIDAZOLE 500MG/ NS 100ML 500 MG in PREMIX 1 EA IV SCH ×3 (03:10→18:24)
[2017-01-23] MEDS: VANCOMYCIN HCL 125 MG/2.5 ML ORAL.SUSP PO SCH ×4 (05:36→23:25)
[2017-01-23] MEDS: METOCLOPRAMIDE HCL 10 MG TABLET GT SCH ×4 (05:36→23:22)
[2017-01-23] MEDS: PIPERACILLIN /TAZOBACTAM 4.5 G in IV D5W 50 ML IV SCH ×4 (05:36→23:23)
[2017-01-23] MEDS: VANCOMYCIN 0.75 GM in IV D5W 250 ML IV SCH (05:37)
[2017-01-23] MEDS: ACETAMINOPHEN 325 MG TABLET PO PRN (05:43)
[2017-01-23] MEDS: BLOOD SUGAR DIAGNOSTIC 1 EACH STRIP IN SCH ×3 (05:56→17:40)
[2017-01-23] MEDS: INSULIN REGULAR, HUMAN 100 UNIT/ML 3 ML VIAL SQ PRN ×3 (06:08→17:43)
--- NOTE | 2017-01-23 06:42 | NUR ---
Continues on ventilator via trach sats> 995. ALSO TOLERATING FDG.tURNING EVERY 2 HRS. mEDICATED FOR DISCOMFORT WITH GOOD RESULTS.
[2017-01-23 07:56] LABS: BASOPHILS % (AUTO) 0.1 % (0.0-2.0); EOSINOPHILS # (AUTO) 0.8 /CMM (0.0-0.7); HEMATOCRIT 23 % (33-45); LYMPHOCYTES # (AUTO) 0.9 /CMM (0.8-4.8); LYMPHOCYTES % (AUTO) 4.7 % (20.0-44.0); MEAN CORPUSCULAR HEMOGLOBIN 33 PG (26.0-33.0); MEAN CORPUSCULAR HGB CONC 34 g/dl (31.0-36.0); MEAN CORPUSCULAR VOLUME 95 fL (82-100); MONOCYTES # (AUTO) 0.8 /CMM (0.1-1.30); MONOCYTES % (AUTO) 4.1 % (2.0-12.0); NEUTROPHILS % (AUTO) 87.1 % (43.0-81.0); PLATELET COUNT (AUTO) 342 /CMM (150-450); RDW COEFFICIENT OF VARIATION 13.3 (11.5-15.0); RED BLOOD CELL COUNT(AUTO) 2.44 MIL/uL (4.0-5.2); WHITE BLOOD COUNT (AUTO) 19.6 K/uL (4.3-11.0)
--- NOTE | 2017-01-23 08:00 | NUR ---
TD/RN AM SHIFT INITIAL NOTES RECEIVED PT AWAKE IN BED, PT OPEN EYES, OBTUNDED, NO GRIMACING NOTED. NO ACUTE CHANGE OF CONDITION NOTED. ON VENTILATOR, RATES SET PRESCRIBED, SATURATING @ 100%, LUNG SOUNDS DIMINISHED, SUCTIONED FOR AIRWAY CLEARANCE. ON TELE WITH SINUS RHYTHM, HR 82. IV SITE, PATENT ON TKO, NO S/S OF INFECTION. GT FEEDING ON GOING @ 50CC/HR, NO GASTRIC RESIDUAL NOTED, FLUSHED, PATENT. JEONG CATHETER INTACT NOTED WITH YELLOW URINE OUTPUT. PT IS COMFORTABLE AT THIS TIME. SCHEDULED AM MEDS TO BE GIVEN. CL WITHIN REACHED AND SAFETY MAINTAINED. ON GOING MONITORING.
[2017-01-23 08:26] LABS: IRON, SERUM 34 ug/dl (50-175); TOTAL IRON BINDING CAPACITY 148 ug/dl (250-450)
[2017-01-23 08:27] LABS: CALCIUM, SERUM 7.7 mg/dL (8.5-10.1); CARBON DIOXIDE 24 mmol/L (21-32); CHLORIDE 108 mmol/L (98-107); CREATININE 0.3 mg/dL (0.6-1.3); GLUCOSE 143 mg/dL (74-106); MAGNESIUM 2.2 mg/dL (1.8-2.4); PHOSPHORUS 1.7 mg/dL (2.5-4.9); POTASSIUM 3.5 mmol/L (3.5-5.1); SODIUM SERUM 142 mmol/L (136-145); UREA NITROGEN, BLOOD 17 mg/dL (7-18)
[2017-01-23 08:38] LABS: FERRITIN 995 ng/mL (8-388); THYROID STIMULATING HORMONE 1.194 uIU/mL (0.358-3.74)
[2017-01-23] MEDS: ZINC SULFATE 220 MG CAPSULE GT SCH (08:45)
[2017-01-23] MEDS: DOCUSATE SODIUM LIQ 100 MG/10 ML UDC GT SCH (08:45)
[2017-01-23] MEDS: SENNOSIDES 8.6 MG TABLET GT SCH (08:45)
[2017-01-23] MEDS: PANTOPRAZOLE 40 MG VIAL IV SCH (08:45)
[2017-01-23] MEDS: LACTOBACILLUS RHAMNOSUS GG 1 EACH CAP.SPRINK GT SCH ×2 (08:45→17:13)
[2017-01-23] MEDS: ASCORBIC ACID 500 MG TABLET GT SCH (08:45)
[2017-01-23] MEDS: METOCLOPRAMIDE HCL 10 MG/10 ML UDC GT SCH (08:45)
[2017-01-23] MEDS: PROSOURCE / PROSTAT (PYXIS) 30 ML UDC GT SCH (08:45)
[2017-01-23] MEDS: MULTIVITAMINS,THERAGRAN 1 UDTAB TABLET PO SCH (08:45)
[2017-01-23] MEDS: FERROUS SULFATE UDC 300 MG/5 ML UDC GT SCH (08:45)
[2017-01-23] MEDS: HEPARIN SODIUM, PORCINE 5000 UNITS/1 ML VIAL SQ SCH ×2 (08:47→20:38)
[2017-01-23] MEDS: SIMETHICONE 80 MG TAB.CHEW GT SCH ×3 (08:47→17:13)
[2017-01-23] MEDS ORDERED: NEUTRA PHOS 1 POWD.PACKET NG ONE (12:00)
--- NOTE | 2017-01-23 13:49 | NUR ---
TD/RN DIETARY RECOMMENDATION SPOKE TO TUBE WRAPPER REGARDING PT PRODUCING EXCESSIVE ABDOMINAL GAS AND ASK WHAT OTHER FORMULA PT CONSUME TO PRODUCE LESS GAS, SHE RECOMMENDED NOVASOURCE RENAL @ 35CC/HR, WILL NOTIFY DR. KOHLER.
--- NOTE | 2017-01-23 17:00 | NUR ---
TD/RN AFTERNOON ROUNDS NO CHANGE OF CONDITION. ON GOING MONITORING.
[2017-01-23] MEDS ORDERED: RENAL NOVASOURCE 1,000 ML BOTTLE GT PRN (18:30)
--- NOTE | 2017-01-23 20:00 | NUR ---
[facility] RN NOTES RECEIVED PTS ON BED AWAKE AND RESPONSIVE , DAUGHTER AT BEDSIDE , UPDATED WITH PTS CURRENT CONDITION , PTS REMAINS ON VENTILATOR DEPENDENT WELL TOLERATED BY PTS SATING 100%, ON TELE SR -69 ON THE MONITOR , NO SOB , NO DISTRESS NOTED NO FACIAL GRIMACING NOTED , WITH OZ MIDLINE G#20 INTACT AND PATENT, R HAND G#24 ALSO INTACT AND PATENT, HOB ELEVATED FOR ASPIRATION PRECAUTION, TURNED AND REPOSITION Q2 HRS AND PRN , GT FEEDING OF NOVASOURCE,AT 35CC/HR PLACEMENT CHECKED NO RESIDUAL NOTED. ALL NEEDS ATTENDED TOO CALL LIGHT WITHIN REACH DUE MEDS GIVEN ORDERED ,WITH F/C INTACT AND PATENT DRAINING WITH YELLOWISH URINE OUTPUT .KEPT PTS CLEAN DRY AND COMFORTABLE. WILL CONTINUE TO MONITOR PTS.
[2017-01-23] MEDS: TRAMADOL HCL 50 MG TABLET GT PRN (21:50)
--- NOTE | 2017-01-23 22:00 | NUR ---
[facility] RN NOTES SUCTION SECRETION DONE , TURNED AND REPOSITIONED , ALL NEEDS ATTENDED TOO .
[2017-01-24] VITALS: BP 118/63
--- NOTE | 2017-01-24 | NUR ---
[facility] RN NOTES BLOOD SUGAR FOR 12MN IS 117MG/DL -NO COVERAGE GIVEN PER SLIDING SCALE. PTS IS SLEEPING COMFORTABLY IN BED V/S STABLE AFEBRILE.
[2017-01-24] MEDS: VANCOMYCIN 0.75 GM in IV D5W 250 ML IV SCH ×2 (00:18→16:01)
[2017-01-24] MEDS: INSULIN REGULAR, HUMAN 100 UNIT/ML 3 ML VIAL SQ PRN ×4 (00:19→17:19)
[2017-01-24] MEDS: BLOOD SUGAR DIAGNOSTIC 1 EACH STRIP IN SCH ×4 (00:20→17:16)
[2017-01-24] MEDS: IPRATROPIUM NEB FS 0.5 MG/2.5 ML AMPUL.NEB HHN SCH ×4 (01:33→19:36)
[2017-01-24] MEDS: ALBUTEROL FS 2.5 MG/0.5 ML VIAL.NEB HHN SCH ×4 (01:33→19:36)
--- NOTE | 2017-01-24 02:44 | NUR ---
[facility] RN NOTES PTS ON BED SLEEPING COMFORTABLY.
[2017-01-24] MEDS: METRONIDAZOLE 500MG/ NS 100ML 500 MG in PREMIX 1 EA IV SCH ×2 (03:40→10:53)
[2017-01-24 04:00] VITALS: BP 126/59
[2017-01-24] MEDS: PIPERACILLIN /TAZOBACTAM 4.5 G in IV D5W 50 ML IV SCH ×3 (05:38→17:25)
[2017-01-24] MEDS: VANCOMYCIN HCL 125 MG/2.5 ML ORAL.SUSP PO SCH ×2 (05:53→12:19)
[2017-01-24] MEDS: METOCLOPRAMIDE HCL 10 MG TABLET GT SCH ×3 (05:57→17:14)
[2017-01-24 06:22] LABS: BASOPHILS # (AUTO) 0.1 /CMM (0.0-0.2); BASOPHILS % (AUTO) 0.4 % (0.0-2.0); EOSINOPHILS # (AUTO) 0.8 /CMM (0.0-0.7); EOSINOPHILS % (AUTO) 6.5 % (0.0-6.0); HEMATOCRIT 24 % (33-45); HEMOGLOBIN 8.2 g/dL (11.5-14.8); LYMPHOCYTES % (AUTO) 7.8 % (20.0-44.0); MEAN CORPUSCULAR HEMOGLOBIN 33 PG (26.0-33.0); MEAN CORPUSCULAR HGB CONC 35 g/dl (31.0-36.0); MEAN CORPUSCULAR VOLUME 94 fL (82-100); MONOCYTES # (AUTO) 0.6 /CMM (0.1-1.30); NEUTROPHILS # (AUTO) 9.8 /CMM (1.8-8.9); NEUTROPHILS % (AUTO) 80.3 % (43.0-81.0); PLATELET COUNT (AUTO) 363 /CMM (150-450); RDW COEFFICIENT OF VARIATION 13.5 (11.5-15.0); RED BLOOD CELL COUNT(AUTO) 2.53 MIL/uL (4.0-5.2); WHITE BLOOD COUNT (AUTO) 12.3 K/uL (4.3-11.0)
--- NOTE | 2017-01-24 06:36 | NUR ---
[facility] RN NOTES PTS REMAINS ON VENT , AC SETTINGS WELL TOLERATED , V/S STABLE AFEBRILE NO SIGNIFICANT CHANGE NOTED , BLOOD SUGAR FOR 6AM IS 141 MG/DL -2 UNITS OF REGULAR INSULIN GIVEN PER SLIDING SCALE, WILL ENDORSE TO RN DAY SHIFT FOR CONTINUITY OF CARE.
[2017-01-24 06:45] LABS: CALCIUM, SERUM 7.9 mg/dL (8.5-10.1); CARBON DIOXIDE 26 mmol/L (21-32); CHLORIDE 106 mmol/L (98-107); CREATININE 0.3 mg/dL (0.6-1.3); GLUCOSE 153 mg/dL (74-106); MAGNESIUM 1.8 mg/dL (1.8-2.4); PHOSPHORUS 2.3 mg/dL (2.5-4.9); SODIUM SERUM 140 mmol/L (136-145); UREA NITROGEN, BLOOD 13 mg/dL (7-18)
[2017-01-24 07:49] LABS: POTASSIUM 2.7 mmol/L (3.5-5.1)
[2017-01-24 08:00] VITALS: BP 112/53
--- NOTE | 2017-01-24 08:00 | NUR ---
TD/RN AM SHIFT INITIAL NOTES RECEIVED PT ASLEEP IN BED, PT OPEN EYES, OBTUNDED, NO GRIMACING NOTED. NO ACUTE DISTRESS NOTED. ON VENTILATOR, RATES SET PRESCRIBED, SATURATING @ 100%, LUNG SOUNDS CLEAR, SUCTIONED FOR AIRWAY CLEARANCE. ON TELE WITH SINUS RHYTHM, HR 75. IV SITE, PATENT ON TKO, NO S/S OF INFECTION. GT FEEDING ON GOING @ 35CC/HR, NO GASTRIC RESIDUAL NOTED, FLUSHED, PATENT. PT NOTED WITH DISTENDED ABDOMEN. JEONG CATHETER INTACT NOTED WITH YELLOW URINE OUTPUT. PT IS COMFORTABLE AT THIS TIME. SCHEDULED AM MEDS TO BE GIVEN. CL WITHIN REACHED AND SAFETY MAINTAINED. ON GOING MONITORING.
[2017-01-24] MEDS: SENNOSIDES 8.6 MG TABLET GT SCH (08:11)
[2017-01-24] MEDS: LACTOBACILLUS RHAMNOSUS GG 1 EACH CAP.SPRINK GT SCH ×2 (08:11→16:15)
[2017-01-24] MEDS: SIMETHICONE 80 MG TAB.CHEW GT SCH ×3 (08:11→16:15)
[2017-01-24] MEDS: FERROUS SULFATE UDC 300 MG/5 ML UDC GT SCH (08:11)
[2017-01-24] MEDS: DOCUSATE SODIUM LIQ 100 MG/10 ML UDC GT SCH (08:11)
[2017-01-24] MEDS: ASCORBIC ACID 500 MG TABLET GT SCH (08:11)
[2017-01-24] MEDS: PROSOURCE / PROSTAT (PYXIS) 30 ML UDC GT SCH (08:11)
[2017-01-24] MEDS: ZINC SULFATE 220 MG CAPSULE GT SCH (08:11)
[2017-01-24] MEDS: MULTIVITAMINS,THERAGRAN 1 UDTAB TABLET PO SCH (08:12)
[2017-01-24] MEDS: PANTOPRAZOLE 40 MG VIAL IV SCH (08:12)
[2017-01-24] MEDS: HEPARIN SODIUM, PORCINE 5000 UNITS/1 ML VIAL SQ SCH ×2 (08:13→20:30)
--- NOTE | 2017-01-24 10:45 | NUR ---
TELE1/RN ROUNDS - DR. KOHLER UPDATED PT'S CONDITION. PT SEEN & EXAMINED BY DR. KOHLER. WITH NEW ORDERS RECEIVED, NOTED AND CARRIED. ON GOING MONITORING.
--- NOTE | 2017-01-24 11:00 | NUR ---
TELE1/RN ROUNDS - DR. ROSE UPDATED PT'S CONDITION. PT SEEN & EXAMINED BY DR. ROSE. NO NEW ORDERS RECEIVED AT THIS TIME. MONITORING CONTINUED.
[2017-01-24] MEDS: Magnesium 1GM/D5W 100ML PREMIX 100 ML IV SCH ×2 (11:24→14:36)
[2017-01-24 12:00] VITALS: BP 120/59
[2017-01-24] MEDS: POTASSIUM CL. PREMIX PERIPHER. 50 ML IV SCH ×6 (12:39→22:27)
[2017-01-24 16:00] VITALS: BP_SYST 138; BP_DIAS 53; BP_DIAS 66
[2017-01-24] MEDS: Potassium Phosphate meq 11 MEQ in IV D5W 100 ML IV SCH ×2 (17:07→20:28)
--- NOTE | 2017-01-24 19:44 | NUR ---
TELE1/RN AM SHIFT END NOTES ALL NEEDS MET. NO ACUTE CHANGE OF CONDITION NOTED DURING THE SHIFT. PT ENDORSED TO PM NURSE TO CONTINUE CARE. CL WITHIN REACHED AND SAFETY MAINTAINED.
[2017-01-24 20:00] VITALS: BP 133/60
--- NOTE | 2017-01-24 20:00 | NUR ---
ORACLE SPECIALIST - NOTES - RECEIVED PT IN BED AWAKE AND RESPONSIVE , DAUGHTER AT BEDSIDE , UPDATED WITH PT CURRENT CONDITION , PTS REMAINS ON VENTILATOR DEPENDENT WELL TOLERATED BY PTS SATING 99%, ON TELE SR -69 ON THE MONITOR , NO SOB , NO DISTRESS NOTED NO FACIAL GRIMACING NOTED , WITH OZ MIDLINE G#20 INTACT AND PATENT, R HAND G#24 ALSO INTACT AND PATENT, HOB ELEVATED FOR ASPIRATION PRECAUTION, TURNED AND REPOSITION Q2 HRS AND PRN , GT FEEDING OF NOVASOURCE,AT 35CC/HR PLACEMENT CHECKED NO RESIDUAL NOTED. ALL NEEDS ATTENDED TOO CALL LIGHT WITHIN REACH DUE MEDS GIVEN ORDERED ,WITH F/C INTACT AND PATENT DRAINING WITH YELLOWISH URINE OUTPUT .KEPT PTS CLEAN DRY AND COMFORTABLE. WILL CONTINUE TO MONITOR PTS.
[2017-01-25] VITALS: BP 156/77
[2017-01-25] MEDS: METOCLOPRAMIDE HCL 10 MG TABLET GT SCH ×5 (00:36→23:37)
[2017-01-25] MEDS: PIPERACILLIN /TAZOBACTAM 4.5 G in IV D5W 50 ML IV SCH ×5 (00:36→23:37)
[2017-01-25] MEDS: BLOOD SUGAR DIAGNOSTIC 1 EACH STRIP IN SCH ×5 (00:36→23:37)
[2017-01-25] MEDS: ALBUTEROL FS 2.5 MG/0.5 ML VIAL.NEB HHN SCH ×4 (01:05→19:50)
[2017-01-25] MEDS: IPRATROPIUM NEB FS 0.5 MG/2.5 ML AMPUL.NEB HHN SCH ×4 (01:05→19:50)
[2017-01-25] MEDS: VANCOMYCIN 0.75 GM in IV D5W 250 ML IV SCH ×2 (01:37→12:55)
[2017-01-25] MEDS: TRAMADOL HCL 50 MG TABLET GT PRN (01:56)
[2017-01-25 04:00] VITALS: BP 123/63
[2017-01-25] MEDS: RENAL NOVASOURCE 1,000 ML BOTTLE GT PRN (04:16)
[2017-01-25] MEDS: IV NS 0.9% 250 ML IV PRN (04:43)
[2017-01-25 06:31] LABS: EOSINOPHILS # (AUTO) 0.8 /CMM (0.0-0.7); EOSINOPHILS % (AUTO) 6.1 % (0.0-6.0); HEMATOCRIT 24 % (33-45); HEMOGLOBIN 8.2 g/dL (11.5-14.8); LYMPHOCYTES # (AUTO) 1.2 /CMM (0.8-4.8); LYMPHOCYTES % (AUTO) 8.7 % (20.0-44.0); MEAN CORPUSCULAR HEMOGLOBIN 32 PG (26.0-33.0); MEAN CORPUSCULAR HGB CONC 34 g/dl (31.0-36.0); MEAN CORPUSCULAR VOLUME 94 fL (82-100); MONOCYTES % (AUTO) 7.2 % (2.0-12.0); NEUTROPHILS # (AUTO) 10.6 /CMM (1.8-8.9); PLATELET COUNT (AUTO) 415 /CMM (150-450); RDW COEFFICIENT OF VARIATION 13.3 (11.5-15.0); RED BLOOD CELL COUNT(AUTO) 2.55 MIL/uL (4.0-5.2); WHITE BLOOD COUNT (AUTO) 13.6 K/uL (4.3-11.0)
[2017-01-25 07:12] LABS: CALCIUM, SERUM 7.9 mg/dL (8.5-10.1); CARBON DIOXIDE 26 mmol/L (21-32); CHLORIDE 106 mmol/L (98-107); CREATININE 0.2 mg/dL (0.6-1.3); GLUCOSE 98 mg/dL (74-106); MAGNESIUM 1.9 mg/dL (1.8-2.4); PHOSPHORUS 2.4 mg/dL (2.5-4.9); POTASSIUM 3.6 mmol/L (3.5-5.1); SODIUM SERUM 139 mmol/L (136-145); UREA NITROGEN, BLOOD 9 mg/dL (7-18)
--- NOTE | 2017-01-25 07:30 | NUR ---
Received pt in bed asleep. on mech. vent settings well tolerated. no s/s of distress. i.v site cdi and patent.Coombs catheter cdi and draining well.will continue to monitor for changes.
--- NOTE | 2017-01-25 07:49 | NUR ---
RT PATIENT REC'D TRACHED ON [facility] VENT WITH SETTINGS SET PER MD MILTON GALLEGO. VENT ALARMS CHECKED + AUDIBLE. CUFF CHECKED CARROTING MACHINE OFFBEARER. TRACH SECURE AND IN PROPER POSITION. BILAT RHONCHI B/S. SX'D WITH MOD PALE SEMITHICK SECRETIONS. BILAT CHEST RISE NOTED. VENT PLUGGED INTO RED OUTLET. PATIENT APPEARS COMFORTABLE AND IN NO DISTRESS. AMBU BAG AT HOB. CONT CURRENT PLAN OF RESP CARE. Addendum: 01/25/17 at 0803 by EMANUEL KHALIL RT Amended: Links added.
[2017-01-25 08:00] VITALS: BP 112/52
[2017-01-25] MEDS: LACTOBACILLUS RHAMNOSUS GG 1 EACH CAP.SPRINK GT SCH ×2 (08:33→17:32)
[2017-01-25] MEDS: ASCORBIC ACID 500 MG TABLET GT SCH (08:33)
[2017-01-25] MEDS: FERROUS SULFATE UDC 300 MG/5 ML UDC GT SCH (08:33)
[2017-01-25] MEDS: SIMETHICONE 80 MG TAB.CHEW GT SCH ×3 (08:33→17:32)
[2017-01-25] MEDS: SENNOSIDES 8.6 MG TABLET GT SCH (08:33)
[2017-01-25] MEDS: DOCUSATE SODIUM LIQ 100 MG/10 ML UDC GT SCH (08:33)
[2017-01-25] MEDS: ZINC SULFATE 220 MG CAPSULE GT SCH (08:33)
[2017-01-25] MEDS: PANTOPRAZOLE 40 MG VIAL IV SCH (08:33)
[2017-01-25] MEDS: MULTIVITAMINS,THERAGRAN 1 UDTAB TABLET PO SCH (08:33)
[2017-01-25] MEDS: HEPARIN SODIUM, PORCINE 5000 UNITS/1 ML VIAL SQ SCH ×2 (08:34→21:57)
[2017-01-25] MEDS ORDERED: Magnesium 1GM/D5W 100ML PREMIX 100 ML IV SCH (09:00)
[2017-01-25] MEDS: Potassium Phosphate meq 11 MEQ in IV D5W 100 ML IV SCH ×2 (09:33→11:57)
[2017-01-25] MEDS: PROSOURCE / PROSTAT (PYXIS) 30 ML UDC GT SCH (09:36)
[2017-01-25 10:09] LABS: BAND % (MANUAL) 7 % (0.0-5.0); EOSINOPHILS % (MANUAL) 2 % (0-4); LYMPHOCYTES % (MANUAL) 8 % (16-48); MONOCYTES % (MANUAL) 4 % (0-11.0); NEUTROPHILS % (MANUAL) 79 (42-76)
[2017-01-25 12:00] VITALS: BP 111/55
[2017-01-25 16:00] VITALS: BP 143/73
[2017-01-25] MEDS ORDERED: DIATR MEGLU/DIATRIZOATE SODIUM 120 ML BOTTLE (GASTROGRAPHIN) ONE (16:46)
--- NOTE | 2017-01-25 19:30 | NUR ---
RN OPENING NOTES: RECEIVED PT ON BED AWAKE AND ALERT TO NAME AND PERSON, SPONTANEOUS EYE OPENING AND RESPONDS BY NODDING/ SHAKING HEAD. WITH TRACH TO MECH VENT WITH SETTINGS ORDERED, TOLERATED WELL, NOT IN APPARENT DISTRESS. IV ACCESS ON OZ MIDLINE, INTACT FLUSHING WELL, ALTHOUGH UNABLE TO WITHDRAW BLOOD. GT INTACT, FEEDING HELD AT THIS TIME FOR ONGOING SBO SERIES. NOTED ABDOMEN TO BE VERY DISTENDED. FC INTACT DRAINING TO A CLOSED SYSTEM WITH YELLOW SLIGHTLY BLOOD TINGED URINE. TO MONITOR. ASPIRATION PRECAUTIONS OBSERVED AT ALL TIMES. FAMILY AT BEDSIDE. CONTINUOUSLY MONITORED.
[2017-01-25 20:00] VITALS: BP 107/68
[2017-01-26] VITALS (7 sets, daily range): BP systolic 92–129; BP diastolic 43–69
[2017-01-26 01:03] LABS: MAGNESIUM 1.8 mg/dL (1.8-2.4); PHOSPHORUS 2.8 mg/dL (2.5-4.9)
[2017-01-26] MEDS: ALBUTEROL FS 2.5 MG/0.5 ML VIAL.NEB HHN SCH ×4 (01:21→20:12)
[2017-01-26] MEDS: IPRATROPIUM NEB FS 0.5 MG/2.5 ML AMPUL.NEB HHN SCH ×4 (01:22→20:12)
[2017-01-26] MEDS: VANCOMYCIN 0.75 GM in IV D5W 250 ML IV SCH ×2 (02:34→12:05)
[2017-01-26] MEDS: IV NS 0.9% 250 ML IV PRN (02:37)
[2017-01-26] MEDS: METOCLOPRAMIDE HCL 10 MG TABLET GT SCH ×3 (05:40→18:06)
[2017-01-26] MEDS: BLOOD SUGAR DIAGNOSTIC 1 EACH STRIP IN SCH ×3 (05:41→18:14)
[2017-01-26] MEDS: PIPERACILLIN /TAZOBACTAM 4.5 G in IV D5W 50 ML IV SCH ×2 (05:41→11:19)
[2017-01-26] MEDS: ACETAMINOPHEN 325 MG TABLET PO PRN (05:47)
[2017-01-26] MEDS: RENAL NOVASOURCE 1,000 ML BOTTLE GT PRN (05:55)
[2017-01-26 06:36] LABS: BASOPHILS % (AUTO) 0.2 % (0.0-2.0); EOSINOPHILS # (AUTO) 0.9 /CMM (0.0-0.7); EOSINOPHILS % (AUTO) 6.7 % (0.0-6.0); HEMATOCRIT 26 % (33-45); HEMOGLOBIN 8.8 g/dL (11.5-14.8); LYMPHOCYTES # (AUTO) 1.4 /CMM (0.8-4.8); LYMPHOCYTES % (AUTO) 10.8 % (20.0-44.0); MEAN CORPUSCULAR HEMOGLOBIN 32 PG (26.0-33.0); MEAN CORPUSCULAR HGB CONC 34 g/dl (31.0-36.0); MEAN CORPUSCULAR VOLUME 94 fL (82-100); MONOCYTES # (AUTO) 1.1 /CMM (0.1-1.30); MONOCYTES % (AUTO) 8.3 % (2.0-12.0); NEUTROPHILS # (AUTO) 9.7 /CMM (1.8-8.9); PLATELET COUNT (AUTO) 537 /CMM (150-450); RDW COEFFICIENT OF VARIATION 13.5 (11.5-15.0); RED BLOOD CELL COUNT(AUTO) 2.75 MIL/uL (4.0-5.2); WHITE BLOOD COUNT (AUTO) 13.1 K/uL (4.3-11.0)
--- NOTE | 2017-01-26 06:54 | NUR ---
RN CLOSING NOTES: PATIENT NOT IN APPARENT DISTRESS. WITH SLIGHT ELEVATED TEMPERATURE. COOLING MEASURES RENDERED. PATIENT WITH MULTIPLE EPISODES OF DIARRHEA OF MODERATE TO LARGE AMOUNT; SKIN CARE RENDERED. TOLERATED GT FEEDING WELL. SAFETY MEASURED ENSURED. TO ENDORSE TO AM SHIFT RN. Addendum: 01/26/17 at 0656 by BLANQUITA MALONE RN ATTEMPTED TO CONTACT JESSICA WALL ANCHORER REGARDING DIARRHEA AND ASKED IF TO REPEAT STOOL CX AND CDIFF. TO NO AVAIL. TO ENDORSE TO AM SHIFT RN.
--- NOTE | 2017-01-26 06:56 | NUR ---
RN CLOSING NOTES: PATIENT NOT IN DISTRESS. TRACH CARE RENDERED. SKIN CARE AND WOUND TREATMENT RENDERED WELL. NPO WITH GTF ON HOLD SINCE MIDNIGHT FOR PENDING PROCEDURE. SAFETY MEASURES ENSURED. IV ACCESS INTACT. CONTINUOUSLY MONITORED. AM LABS PENDING. TO ENDORSE TO AM SHIFT RN.
[2017-01-26 07:05] LABS: CALCIUM, SERUM 8.1 mg/dL (8.5-10.1); CARBON DIOXIDE 26 mmol/L (21-32); CHLORIDE 104 mmol/L (98-107); CREATININE 0.3 mg/dL (0.6-1.3); GLUCOSE 139 mg/dL (74-106); POTASSIUM 2.9 mmol/L (3.5-5.1); SODIUM SERUM 139 mmol/L (136-145); UREA NITROGEN, BLOOD 7 mg/dL (7-18)
[2017-01-26] MEDS: ZINC SULFATE 220 MG CAPSULE GT SCH (08:09)
[2017-01-26] MEDS: PROSOURCE / PROSTAT (PYXIS) 30 ML UDC GT SCH (08:10)
[2017-01-26] MEDS: SIMETHICONE 80 MG TAB.CHEW GT SCH ×3 (08:10→16:14)
[2017-01-26] MEDS: ASCORBIC ACID 500 MG TABLET GT SCH (08:10)
[2017-01-26] MEDS: LACTOBACILLUS RHAMNOSUS GG 1 EACH CAP.SPRINK GT SCH ×2 (08:10→16:14)
[2017-01-26] MEDS: MULTIVITAMINS,THERAGRAN 1 UDTAB TABLET PO SCH (08:10)
[2017-01-26] MEDS: PANTOPRAZOLE 40 MG VIAL IV SCH (08:10)
[2017-01-26] MEDS: SENNOSIDES 8.6 MG TABLET GT SCH (08:10)
[2017-01-26] MEDS: FERROUS SULFATE UDC 300 MG/5 ML UDC GT SCH (08:10)
[2017-01-26] MEDS: DOCUSATE SODIUM LIQ 100 MG/10 ML UDC GT SCH (08:11)
[2017-01-26] MEDS: HEPARIN SODIUM, PORCINE 5000 UNITS/1 ML VIAL SQ SCH ×2 (08:20→21:31)
--- NOTE | 2017-01-26 08:21 | NUR ---
HELD STOOL SOFTENERS DUE TO FREQUENT BM.
[2017-01-26] MEDS: POTASSIUM CHLORIDE 20 MEQ POWDER PACKET GT SCH ×3 (11:19→12:30)
[2017-01-26] MEDS: INSULIN REGULAR, HUMAN 100 UNIT/ML 3 ML VIAL SQ PRN ×2 (11:27→18:13)
[2017-01-27] VITALS: BP 133/68
[2017-01-27] MEDS: ALBUTEROL FS 2.5 MG/0.5 ML VIAL.NEB HHN SCH ×4 (00:36→19:51)
[2017-01-27] MEDS: IPRATROPIUM NEB FS 0.5 MG/2.5 ML AMPUL.NEB HHN SCH ×4 (00:36→19:51)
[2017-01-27] MEDS: METOCLOPRAMIDE HCL 10 MG TABLET GT SCH ×4 (00:38→17:36)
[2017-01-27] MEDS: BLOOD SUGAR DIAGNOSTIC 1 EACH STRIP IN SCH ×4 (00:39→17:36)
--- NOTE | 2017-01-27 01:00 | NUR ---
PT NOTED WITH GENERALIZED BODY RASH ON BILATERAL UPPER AND LOWER EXTREMITIES, TRACING DOWN ON ENTIRE BACK AND CHEST AREA. MD SAFETY NET MAKER PAGED. PICTURES TAKEN AND PLACED IN THE CHART, CHARGE NURSE AWARE.
[2017-01-27 04:00] VITALS: BP 128/60
--- NOTE | 2017-01-27 04:00 | NUR ---
SPOKE TO MD JOSE MD AWARE OF GENERALIZED RASH, WITH NO NEW ORDER, PCP WILL ASSESS IN THE MORNING. CHARGE NURSE AWARE.
[2017-01-27] MEDS: TRAMADOL HCL 50 MG TABLET GT PRN (04:04)
--- NOTE | 2017-01-27 04:05 | NUR ---
PT COMPLAINED OF GENERALIZED PAIN, ULTRAM ADMINISTERED ORDERED.
[2017-01-27] MEDS: IV NS 0.9% 250 ML IV PRN (04:07)
[2017-01-27] MEDS: RENAL NOVASOURCE 1,000 ML BOTTLE GT PRN (04:07)
--- NOTE | 2017-01-27 05:00 | NUR ---
RN NOTES RECEIVED REPORT FROM PRITI ARNOLD FOR PATIENT'S ISRAEL. PT IS AWAKE ON THE BED, A/OX 1, ABLE TO MOUTH WORDS, MAINLY UNDERSTANDS MONGOLIAN. ON VENT SETTINGS AC 14, TV 500, 40%FIO2, PEEP 5, SATURATING WELL, NO S/S OF RESP DISTRESS. SR ON THE MONITOR. JEONG CATH NOTED. ON GTUBE FEEDING OF NOVASOURCE @ 35MLS/HR, NO RESIDUALS. RIGHT UPPER ARM MIDLINE FLUSHED AND PATENT, NO S/S OF INFILTRATION/INFECTION, DRESSING CDI. GENERALIZED RASHES NOTED. PUT THE PATIENT ON ISOLATION FOR POSSIBLE SCABIES. MD HAS BEEN MADE AWARE BY CATALINA MARCOS AND WOUND CONSULT WAS ORDERED. BED LOW AND LOCKED, SIDERAILS UP, CALL LIGHT WITHIN REACH. WILL MONITOR
[2017-01-27] MEDS: PIPERACILLIN /TAZOBACTAM 4.5 G in IV D5W 50 ML IV SCH ×3 (05:08→17:34)
[2017-01-27] MEDS ORDERED: VANCOMYCIN 1 GM in IV D5W 250 ML IV SCH (06:00)
--- NOTE | 2017-01-27 06:30 | NUR ---
RN CLOSING NOTES PT REMAINS STABLE OF THE MOMENT. ALL DUE MEDS GIVEN, AM CARE PROVIDED. WILL ENDORSE ISRAEL TO AM RN
[2017-01-27 07:01] LABS: CALCIUM, SERUM 8.4 mg/dL (8.5-10.1); CARBON DIOXIDE 26 mmol/L (21-32); CHLORIDE 109 mmol/L (98-107); CREATININE 0.2 mg/dL (0.6-1.3); GLUCOSE 130 mg/dL (74-106); POTASSIUM 3.2 mmol/L (3.5-5.1); SODIUM SERUM 142 mmol/L (136-145); UREA NITROGEN, BLOOD 7 mg/dL (7-18)
[2017-01-27 08:00] VITALS: BP 123/63
[2017-01-27 08:14] LABS: IMMUNOGLOBULIN A, SERUM 250 mg/dL (64-422); IMMUNOGLOBULIN G, SERUM 1269 mg/dL (700-1600); IMMUNOGLOBULIN M, SERUM 88 mg/dL (26-217)
[2017-01-27] MEDS: ZINC SULFATE 220 MG CAPSULE GT SCH (08:22)
[2017-01-27] MEDS: LACTOBACILLUS RHAMNOSUS GG 1 EACH CAP.SPRINK GT SCH ×2 (08:23→17:36)
[2017-01-27] MEDS: PROSOURCE / PROSTAT (PYXIS) 30 ML UDC GT SCH (08:23)
[2017-01-27] MEDS: PANTOPRAZOLE 40 MG VIAL IV SCH (08:23)
[2017-01-27] MEDS: MULTIVITAMINS,THERAGRAN 1 UDTAB TABLET PO SCH (08:23)
[2017-01-27] MEDS: FERROUS SULFATE UDC 300 MG/5 ML UDC GT SCH (08:23)
[2017-01-27] MEDS: ASCORBIC ACID 500 MG TABLET GT SCH (08:23)
[2017-01-27] MEDS: SIMETHICONE 80 MG TAB.CHEW GT SCH ×3 (08:23→17:36)
[2017-01-27] MEDS: HEPARIN SODIUM, PORCINE 5000 UNITS/1 ML VIAL SQ SCH ×2 (08:38→21:21)
[2017-01-27] MEDS: SENNOSIDES 8.6 MG TABLET GT SCH (09:00)
[2017-01-27] MEDS: DOCUSATE SODIUM LIQ 100 MG/10 ML UDC GT SCH (09:00)
--- NOTE | 2017-01-27 10:20 | NUR ---
DR. SCHILLING @ BEDSIDE CLEARED PATIENT NO SCABIES. ISOLATION REMOVED.
--- NOTE | 2017-01-27 11:04 | NUR ---
WOUND CARE CONSULT: PT PRESENTS WITH STAGE 2 ULCER TO SACRUM. PER MD NOTE, PT HAD STAGE 2 SACRAL ULCER PRESENT ON ADMISSION. ULCER APPEARS DRY. RECOMMEND CHANGE PLAN OF CARE TO HYDROGEL AND MEPILEX FOR MOIST WOUND HEALING. PT ON ENRICO ISOFLEX LOW AIRLOSS BED. PT ON VENTILATOR. PT INCONTINENT OF STOOL. ALL SKIN PROTECTION MEASURES IN PLACE. PT TO BE TURNED AND REPOSITIONED EVERY 2 HRS PT CONDITION PERMITS. SCARRING AND STAINING NOTED TO SKIN AT SACRAL/BUTTOCKS AREA. WILL SEE PRN. MD IN AGREEMENT WITH PLAN OF CARE. Addendum: 01/27/17 at 1114 by DEIRDRE MCMAHON WNDNU CURRENT BRIANNA SCORE IS 9.
[2017-01-27] MEDS ORDERED: HYDROGEL DRESSING 90 GM TUBE TP PRN (11:30)
[2017-01-27] MEDS: HYDROGEL DRESSING 90 GM TUBE TP SCH (11:33)
[2017-01-27] MEDS: POTASSIUM CHLORIDE 20 MEQ POWDER PACKET GT SCH ×2 (11:39→12:42)
[2017-01-27 12:00] VITALS: BP 113/56
[2017-01-27 14:27] LABS: *SPE A/G RATIO 0.6 (0.7-1.7); *SPE ALBUMIN 2.4 g/dL (2.9-4.4); *SPE ALPHA-1-GLOBULIN 0.5 g/dL (0.0-0.4); *SPE BETA GLOBULIN 0.9 g/dL (0.7-1.3); *SPE GLOBULIN, TOTAL 3.8 g/dL (2.2-3.9); *SPE M-SPIKE Not Observed g/dL (Not Observed); *SPE PROTEIN TOTAL 6.2 g/dL (6.0-8.5); *SPEGAMMA GLOBULIN 1.4 g/dL (0.4-1.8)
[2017-01-27 16:00] VITALS: BP 98/50
[2017-01-27] MEDS: INSULIN REGULAR, HUMAN 100 UNIT/ML 3 ML VIAL SQ PRN (17:39)
--- NOTE | 2017-01-27 19:10 | NUR ---
RN NOTES RECEIVED PT ON BED AWAKE NON-VERBAL ABLE TO EXPRESS FEELINGS BY FACIAL REACTION AOX1-2 FOLLOW COMMAND BY NODDING. TRACH PORTEX 7 CONNECTED TO VENT SETTING OF AC 14 TV 500 FIO2 40% PEEP 5 TOLERATED WELL. DENIES PAIN. AFEBRILE. DAUGHTER AT BEDSIDE. PT HAS NO ACUTE RESP DISTRESS NOTED. BILATERAL BREATH SOUND DIMINISHED. SUCTIONED WITH SMALL WHITISH SECRETION. GTF NOVASOURCE @ 35 CC/HR INTACT AND PATENCY CHECKED WITH RESIDUAL OF 10 CC. IV SITE ON OZ MIDLINE INTACT AND PATENT. KEPT CLEAN AND DRY. OFFLOADED EXT WITH PILLOWS. WILL MONITORED FREQ.
[2017-01-27 20:00] VITALS: BP 119/55
[2017-01-28] VITALS: BP 107/56
[2017-01-28] MEDS: METOCLOPRAMIDE HCL 10 MG TABLET GT SCH ×3 (00:18→12:25)
[2017-01-28] MEDS: PIPERACILLIN /TAZOBACTAM 4.5 G in IV D5W 50 ML IV SCH ×3 (00:18→12:34)
[2017-01-28] MEDS: BLOOD SUGAR DIAGNOSTIC 1 EACH STRIP IN SCH ×3 (00:20→12:32)
[2017-01-28] MEDS: INSULIN REGULAR, HUMAN 100 UNIT/ML 3 ML VIAL SQ PRN ×2 (00:26→12:51)
[2017-01-28] MEDS: IPRATROPIUM NEB FS 0.5 MG/2.5 ML AMPUL.NEB HHN SCH ×3 (01:40→12:49)
[2017-01-28] MEDS: ALBUTEROL FS 2.5 MG/0.5 ML VIAL.NEB HHN SCH ×3 (01:40→12:49)
[2017-01-28 04:00] VITALS: BP 125/64
[2017-01-28] MEDS: RENAL NOVASOURCE 1,000 ML BOTTLE GT PRN (05:31)
--- NOTE | 2017-01-28 06:12 | NUR ---
RN NOTES PT ASLEEP WELL ON BED. MARIA ISABEL CUTE RESP DISTRESS. TRACH AND VENT SETTING TOLERATED WELL. AFEBRILE. VS WNL. INCONTINENT CARE RENDERED. CONTINUE WITH IV ATB ORDERED. NO ASE SHOWS. NO SIGNIFICANT CHANGES. KEPT CLEABN AND DRY. WILL ENDORSED CONTINUITY OF CARE TO AM NURSE
[2017-01-28 06:29] LABS: BASOPHILS % (AUTO) 0.3 % (0.0-2.0); EOSINOPHILS # (AUTO) 0.7 /CMM (0.0-0.7); EOSINOPHILS % (AUTO) 5.7 % (0.0-6.0); HEMATOCRIT 26 % (33-45); HEMOGLOBIN 8.6 g/dL (11.5-14.8); LYMPHOCYTES # (AUTO) 1.4 /CMM (0.8-4.8); LYMPHOCYTES % (AUTO) 11.3 % (20.0-44.0); MEAN CORPUSCULAR HEMOGLOBIN 32 PG (26.0-33.0); MEAN CORPUSCULAR HGB CONC 34 g/dl (31.0-36.0); MEAN CORPUSCULAR VOLUME 96 fL (82-100); MONOCYTES # (AUTO) 0.8 /CMM (0.1-1.30); MONOCYTES % (AUTO) 6.3 % (2.0-12.0); NEUTROPHILS # (AUTO) 9.7 /CMM (1.8-8.9); NEUTROPHILS % (AUTO) 76.4 % (43.0-81.0); PLATELET COUNT (AUTO) 628 /CMM (150-450); RDW COEFFICIENT OF VARIATION 13.6 (11.5-15.0); RED BLOOD CELL COUNT(AUTO) 2.67 MIL/uL (4.0-5.2); WHITE BLOOD COUNT (AUTO) 12.7 K/uL (4.3-11.0)
[2017-01-28 06:58] LABS: CALCIUM, SERUM 8.7 mg/dL (8.5-10.1); CARBON DIOXIDE 24 mmol/L (21-32); CHLORIDE 106 mmol/L (98-107); CREATININE 0.2 mg/dL (0.6-1.3); GLUCOSE 134 mg/dL (74-106); MAGNESIUM 1.7 mg/dL (1.8-2.4); PHOSPHORUS 3.2 mg/dL (2.5-4.9); POTASSIUM 3.2 mmol/L (3.5-5.1); SODIUM SERUM 139 mmol/L (136-145); UREA NITROGEN, BLOOD 11 mg/dL (7-18)
--- NOTE | 2017-01-28 07:43 | NUR ---
INITIAL HYDRAULIC PRESS SERVICER NOTE RCVD PT AWAKE, ABLE TO FOLLOW SIMPLE COMMANDS SUCH OPEN/CLOSING EYES. UNABLE TO MOVE BUE OR BLE. PT TOLERATING ORDERED VENT SETTINGS. SHOWING NO S/O DISTRESS/PAIN. SR ON TELE. JEONG DRAINING TO GRAVITY CLOUDY,PALE, YELLOW URINE OBSERVED. G-TUBE PLACEMENT VERIFIED BY AUSCULTATION/ASPIRATION. ABOUT 10 ML RESIDUAL NOTED. WILL CONTINUE TO MONITOR PT FOR SAFETY AND COMFORT. CALL LIGHT WITHIN REACH.
[2017-01-28 08:00] VITALS: BP 117/68
[2017-01-28] MEDS: SIMETHICONE 80 MG TAB.CHEW GT SCH ×3 (08:55→16:36)
[2017-01-28] MEDS: DOCUSATE SODIUM LIQ 100 MG/10 ML UDC GT SCH (08:55)
[2017-01-28] MEDS: SENNOSIDES 8.6 MG TABLET GT SCH (08:55)
[2017-01-28] MEDS: ASCORBIC ACID 500 MG TABLET GT SCH (08:55)
[2017-01-28] MEDS: MULTIVITAMINS,THERAGRAN 1 UDTAB TABLET PO SCH (08:55)
[2017-01-28] MEDS: FERROUS SULFATE UDC 300 MG/5 ML UDC GT SCH (08:55)
[2017-01-28] MEDS: ZINC SULFATE 220 MG CAPSULE GT SCH (08:55)
[2017-01-28] MEDS: LACTOBACILLUS RHAMNOSUS GG 1 EACH CAP.SPRINK GT SCH ×2 (08:55→16:36)
[2017-01-28] MEDS: PROSOURCE / PROSTAT (PYXIS) 30 ML UDC GT SCH (08:55)
[2017-01-28] MEDS: PANTOPRAZOLE 40 MG VIAL IV SCH (08:55)
[2017-01-28] MEDS: HYDROGEL DRESSING 90 GM TUBE TP SCH (08:56)
[2017-01-28] MEDS: HEPARIN SODIUM, PORCINE 5000 UNITS/1 ML VIAL SQ SCH (09:00)
[2017-01-28] MEDS ORDERED: POTASSIUM CHLORIDE 20 MEQ POWDER PACKET GT SCH (11:30)
[2017-01-28 12:00] VITALS: BP 110/71
[2017-01-28] MEDS: Magnesium 1GM/D5W 100ML PREMIX 100 ML IV SCH ×2 (12:36→13:45)
--- NOTE | 2017-01-28 15:38 | NUR ---
RESEARCH PHYSICIAN NOTE PT'S SONMALLIKA AT BEDSIDE UPDATED ON PT'S CONDITION. QUESTIONS ANSWERED.
[2017-01-28 16:00] VITALS: BP 120/69
--- NOTE | 2017-01-28 17:38 | NUR ---
STUDY MANAGER NOTE PT D/C TO [facility] REPORT CALLED IN TO [facility]. PT TRANSPORTED VIA AMBULANCE IN STABLE CONDITION. PT AWAKE AND ALERT VITAL SIGNS STABLE. PT'S SON AWARE OF DOUGH CUTTER TIME AND TOOK PT'S BELONGINGS FROM BEDSIDE TABLE. WOUND CARE MEDICATION TRANSPORTED WITH PT. NO BELONGINGS UPON ADMISSION.
== END 2017-01-28 17:30 | DRG 130 ==
LOC: ER 12:14 → ICU 14:44 → TELE-TD 23:23 → TELE1 01-24 10:24
PROVIDERS: ADMIT Internal Medicine; ATTEND Internal Medicine
PROC: 5A1955Z Respiratory Ventilation, Greater than 96 Consecutive Hours (ICD-10-PCS; principal; 2017-01-21)
PROC: 05H533Z Insertion of Infusion Device into Right Subclavian Vein, Percutaneous Approach (ICD-10-PCS; principal; 2017-01-21)
DX: J95.851 Ventilator associated pneumonia (principal); R65.21 Severe sepsis with septic shock; E43 Unspecified severe protein-calorie malnutrition; J15.6 Pneumonia due to other Gram-negative bacteria; A41.9 Sepsis, unspecified organism; J15.9 Unspecified bacterial pneumonia; J96.21 Acute and chronic respiratory failure with hypoxia; R40.3 Persistent vegetative state; Z99.11 Dependence on respirator [ventilator] status; L89.152 Pressure ulcer of sacral region, stage 2; E87.2 Acidosis; N39.0 Urinary tract infection, site not specified; R53.2 Functional quadriplegia; D68.59 Other primary thrombophilia; E11.9 Type 2 diabetes mellitus without complications; D50.9 Iron deficiency anemia, unspecified; E87.6 Hypokalemia; K21.9 Gastro-esophageal reflux disease without esophagitis; K52.9 Noninfective gastroenteritis and colitis, unspecified; R13.10 Dysphagia, unspecified; Z93.1 Gastrostomy status; Z93.0 Tracheostomy status; G65.0 Sequelae of Guillain-Barre syndrome; Z68.22 Body mass index [BMI] 22.0-22.9, adult; B96.20 Unspecified Escherichia coli [E. coli] as the cause of diseases classified elsewhere; E88.09 Other disorders of plasma-protein metabolism, not elsewhere classified; R19.5 Other fecal abnormalities; Y83.3 Surgical operation with formation of external stoma as the cause of abnormal reaction of the patient, or of later complication, without mention of misadventure at the time of the procedure; Y82.8 Other medical devices associated with adverse incidents; Y92.129 Unspecified place in nursing home as the place of occurrence of the external cause; E66.01 Morbid (severe) obesity due to excess calories; K56.7 Ileus, unspecified; B96.89 Other specified bacterial agents as the cause of diseases classified elsewhere; Z79.4 Long term (current) use of insulin; J40 Bronchitis, not specified as acute or chronic
CPT/HCPCS: 31720; 36415; 36569; 71010-TC; 74250-TC; 80048-TC; 80053-TC; 80076-TC; 80202-TC; 81000-TC; 82272-TC; 82553-TC; 82728-TC; 82746; 82784; 82962-TC; 83540-TC; 83605-TC; 83735-TC; 84100-TC; 84132-TC; 84155; 84165; 84439-TC; 84443-TC; 84484-TC; 85025-TC; 85610-TC; 85730-TC; 86334; 87040-TC; 87045-TC; 87070-TC; 87081-TC; 87086-TC; 87186-TC; 94003-TC; 94762-TC; 99082-TC; A4216; A4606; A4623; A6248; A6402; A6403; A7526; C9113; J1644; J1815; J2405; J2543; J3370; J3475; J3480; J3490; J7030; J7050; J7060; J8597; Q9963; Z7610